=== PATIENT | male | born 1950 | race Caucasian/White ===

== ENCOUNTER 2019-08-21 22:33 | Inpatient (IN) | payer OTHER ==
[~2019-08-21] VITALS: Ht 177.8 cm; Wt 154.7 kg
[2019-08-21 22:37] VITALS: BP 159/89
[2019-08-21] MEDS ORDERED: ZESTRIL40 MG PO (22:42)
[2019-08-21] MEDS ORDERED: CARVEDILOL25 MG PO (22:42)
[2019-08-21] MEDS ORDERED: AFEDITAB CR60 MG PO (22:43)
[2019-08-21 23:01] LABS: ABSOLUTE BASOPHILS 0.1 thou/uL (0.0-0.2); ABSOLUTE EOSINOPHILS 0.3 thou/uL (0.0-0.7); ABSOLUTE LYMPHOCYTES 5.6 thou/uL (0.8-5.3); ABSOLUTE MONOCYTES 1.1 thou/uL (0.0-1.2); ABSOLUTE NEUTROPHILS 4.4 thou/uL (1.6-8.1); BASOPHILS 1.2 %; EOSINOPHILS 2.8 %; HEMATOCRIT 49.5 % (42.0-52.0); HEMOGLOBIN 16.8 gm/dL (14.0-18.0); LYMPHOCYTES 48.6 %; MCH 29.2 pg (26.0-34.0); MCHC 33.9 g/dL (28.0-37.0); MCV 86.2 fL (80.0-100.0); MONOCYTES 9.3 %; MPV 7.8 fl. (7.2-11.1); NUCLEATED RBCS 0 /100WBC; PLATELET COUNT* 319 thou/uL (150-400); POLYS 38.1 %; RBC 5.74 mil/uL (4.50-6.00); RDW-CV 14.1 % (10.5-14.5); WBC 11.5 thou/uL (4.0-11.0)
[2019-08-21 23:19] LABS: PROTIME 10.3 Seconds (9.20-11.50)
[2019-08-21 23:26] LABS: CREATININE 1.3 mg/dL (0.6-1.3); POTASSIUM 3.7 mmol/L (3.5-5.1)
[2019-08-21 23:37] LABS: ALBUMIN 3.6 g/dL (3.4-5.0); TOTAL BILIRUBIN 0.8 mg/dL (<0.1-1.0); TOTAL PROTEIN 8.1 g/dL (6.4-8.2)
[2019-08-22] VITALS (16 sets, daily range): BP systolic 126–176; BP diastolic 56–91
--- NOTE | 2019-08-22 03:57 | NUR ---
PT ADMITTED TO ROOM 201 FROM ED FOR EPISODE OF CHEST PAIN AT HOME. PT PLEASANT AND COOPERATIVE, DENIES PAIN OR DISCOMFORT. PT ORIENTED TO CALL LIGHT, BED CONTROLS AND ROOM. PT STARTED ON HEPARIN DRIP PER ORDERS. CALL LIGHT IN REACH, PT DEMONSTRATES PROPER USE.
--- NOTE | 2019-08-22 06:48 | NUR ---
CRITICAL TROPONIN 7.[address] BABS POWERS AT 0615. RECIEVED ORDERS FOR 12 LEAD EKG, TROPONIN T 10 AM AND MEDICATIONS.
[2019-08-22 10:13] LABS: CHOLESTEROL 190 mg/dL (<200); HDL CHOLESTEROL 31 mg/dL (>40); LDL CHOLESTEROL 142 mg/dL (<100); TC:HDL 6.1 Ratio (Not establshd); TRIGLYCERIDE 85 mg/dL (<150); VLDL 17 mg/dL (<40)
[2019-08-22 10:26] LABS: SERUM ASSESSMENT Clear
--- NOTE | 2019-08-22 11:43 | NUR ---
PT TAKEN TO SALES/MARKETING FOR PROCEDURE
--- NOTE | 2019-08-22 14:21 | EKG ---
[place] [address] ELECTROCARDIOGRAM REPORT Name: CHELSEA KOEHLER RADHA Room: [address] ADM IN M.R.#: [id number] Admission: 08/22/19 Attend Phys: Magdaleno lan Sa Discharge: Date of : 46 Date of Service: 08/21/192236 Report #: [id number] THIS REPORT FOR: //name// [facility] ED Test Date: 2019-08-21 Test Time: 22:37:17 Pat Name: CHELSEA KOEHLER Department: Room: [facility] Gender: M Home Health Aid: RANJANA : 1950 Requested By: Kylie Carlin Order Number: [id number] MD: Kip Llamas Measurements Intervals [place] Rate: 88 P: 25 [place]: 188 QRS: 3 QRSD: 113 T: 58 QT: 369 QTc: 447 Interpretive Statements Sinus rhythm Probable left atrial enlargement Incomplete right bundle branch block Low voltage, precordial leads Baseline wander in lead(s) V1 No previous ECG available for comparison Electronically Signed On 08-22-2019 14:20:25 CDT by Kip Llamas [email or web address] <ELECTRONICALLY SIGNED> By: Jesse Llamas MD, [facility] 08/22/19 142 36 36 Jesse Llamas MD, [facility] /EPI
--- NOTE | 2019-08-22 16:45 | NUR ---
PT POST CATH PROCEDURE VS STABLE. RADIAL SITE CLEAR OF DRAINAGE. VASC BAND DEFLATED AND PT TIOLERTING WELL. NO REPORTS OF PAIN. PT MAY D/C TOMORROW POSSIBLY. PT RESTING AT THIS TIME. NO COMPLAINTS.
[2019-08-22 16:49] LABS: URINE BILIRUBIN NEGATIVE (Negative); URINE BLOOD 2+ (Negative); URINE COLOR YELLOW; URINE GLUCOSE-RANDOM NEGATIVE (Negative); URINE KETONES NEGATIVE (Negative); URINE LEUKOCYTES-REFLEX NEGATIVE (Negative); URINE NITRITE-REFLEX NEGATIVE (Negative); URINE PROTEIN NEGATIVE (Negative); URINE SPECIFIC GRAVITY <= 1.005 (1.005-1.030); URINE UROBILINOGEN 0.2 E.U./dl (0.2-1.0)
[2019-08-22 16:52] LABS: URINE CLARITY HAZY
[2019-08-22 16:59] LABS: BACTERIA-REFLEX None Seen /HPF (None Seen); CASTS None Seen /LPF (None Seen); CRYSTALS None Seen /LPF (None Seen); SQUAMOUS 0-3 Few /LPF (0-3); URINE RBC None Seen /HPF (0-2); URINE WBC-REFLEX None Seen /HPF (0-5)
[2019-08-23] VITALS: BP 150/91
[2019-08-23 04:00] VITALS: BP 155/89
[2019-08-23 04:30] LABS: HEMATOCRIT 46.3 % (42.0-52.0); HEMOGLOBIN 15.3 gm/dL (14.0-18.0); MCH 28.7 pg (26.0-34.0); MCV 86.8 fL (80.0-100.0); MPV 8.2 fl. (7.2-11.1); RBC 5.33 mil/uL (4.50-6.00); RDW-CV 13.9 % (10.5-14.5); WBC 12.9 thou/uL (4.0-11.0)
--- NOTE | 2019-08-23 04:41 | NUR ---
ASSUMED CARE OF PT AFTER REPORT AT 1930. PT A&OX. VSS. PHYSICAL ASSESSMENT COMPLETED AND CHARTED. PT ON O2 AT 2L NC. PT TRACING SR/1ST DEG ON TELE. PT UPADLIB TO RESTROOM. PT DENIES ANY PAIN OR DISCOMFORT. POST CATH SITE TO RIGHT RADIAL-RADSTAT REMOVED. COVERED WITH GAUZE & TRANSPARENT DRESSING- CLEAN, DRY & INTACT. NO BLEEDING OR HEMATOMA NOTED. CALL LIGHT WITHIN REACH.
[2019-08-23 05:05] LABS: ALBUMIN 3.5 g/dL (3.4-5.0); CALCIUM 8.9 mg/dL (8.5-10.1); CREATININE 1.3 mg/dL (0.6-1.3); POTASSIUM 4.6 mmol/L (3.5-5.1); TOTAL PROTEIN 7.1 g/dL (6.4-8.2)
[2019-08-23 08:00] VITALS: BP 155/86
--- NOTE | 2019-08-23 08:13 | 2DMMODE ---
[place] [address] 2 D/M-MODE ECHOCARDIOGRAM Name: CHELSEA KOEHLER Room: [address] IN [facility]#: [id number] Admission: 08/22/19 Attend Phys: Magdaleno lan Sa Discharge: Date of : 46 Date of Service: 08/23/19811 Report #: [id number] THIS REPORT FOR: cc: Bebe Lyman Carol ARNP Biggs, F. Douglas MD [facility] ~ APPROVED REPORT Study performed: 08/22/2019 18:19:55 EXAM: Comprehensive 2D, Doppler, and color-flow Echocardiogram Patient Location: In-Patient Room #: [facility] Status: routine BSA: 2.62 HR: 63 bpm BP: 153/86 mmHg Rhythm: NSR Other Information Technically limited study due to body habitus, poor endocardial definition, inability to position patient, patient unable to tolerate apical views, hence the off axis imaging. Indications Chest Pain 2D Dimensions IVSd: 10.34 (7-11mm) LVOT Diam: 20.70 (18-24mm) LVDd: 48.11 mm PWd: 9.94 (7-11mm) Ascending Ao: 34.42 (22-36mm) LVDs: 21.00 (25-40mm) Aortic Root: 34.64 mm Mitral Valve E/A Ratio: 0.68 MV Decel. Time: 296.29 ms MV E Max Jack.: 0.90 m/s MV PHT: 85.92 ms MVA (PHT): 2.56 cm2 Pulmonary Valve PV Peak Jack.: 1.20 m/s PV Peak Gr.: 5.74 [place] [address] 2 D/M-MODE ECHOCARDIOGRAM Name: CHELSEA KOEHLER Room: [address] IN .R.#: [id number] Admission: 08/22/19 Attend Phys: Magdaleno lan Sa Discharge: Date of : 46 Date of Service: 08/23/19 0812 Report #: [id number] Left Ventricle The left ventricle is normal size. There is normal LV segmental wall motion. There is normal left ventricular wall thickness. Left ventricular systolic function is normal. The left ventricular ejection fraction is within the normal range. LVEF is 55-60%. Grade I - abnormal relaxation pattern. Right Ventricle The right ventricle is normal size. The right ventricular systolic function is normal. Atria The left atrium size is normal. The right atrium size is normal. Aortic Valve The aortic valve is normal in structure. No aortic regurgitation is present. There is no aortic valvular stenosis. Mitral Valve There is mitral annular calcification. There is no mitral valve regurgitation noted. No evidence of mitral valve stenosis. Tricuspid Valve The tricuspid valve is normal in structure. Unable to assess PA pressure. Trace tricuspid regurgitation. Pulmonic Valve The pulmonary valve is normal in structure. There is no pulmonic valvular regurgitation. Great Vessels The aortic root is normal in size. IVC is normal in size and collapses >50% with inspiration. Pericardium There is no pericardial effusion. <Conclusion> LVEF is 55-60%. Grade I - abnormal relaxation pattern. The left ventricle is normal size. There is normal LV segmental wall motion. There is normal left ventricular wall thickness. No aortic regurgitation is present. There is no mitral valve [place] [address] 2 D/M-MODE ECHOCARDIOGRAM Name: CHELSEA KOEHLER RADHA Room: [address] IN .R.#: [id number] Admission: 08/22/19 Attend Phys: Magdaleno lan Sa Discharge: Date of : 46 Date of Service: 08/23/19811 Report #: [id number] Unable to assess PA pressure. Trace tricuspid regurgitation. <ELECTRONICALLY SIGNED> By: Jesse Llamas MD, [facility] 08/23/19811 1 0812 Jesse Llamas MD, FACC /INF
[2019-08-23 09:20] VITALS: BP 155/89
[2019-08-23 10:04] VITALS: BP 155/86
--- NOTE | 2019-08-23 10:11 | CARD ---
[address] [address] CARDIAC CATH REPORT Name: RODOCHELSEA RADHA Room: [address] IN .R.#: [id number] Admission: 08/22/19 Attend Phys: Magdaleno lan [place] Discharge: Date of : 46 Report #: [id number] THIS REPORT FOR: //name// cc: Bebe Lyman Carol ARNP ~ APPROVED REPORT Study performed: 08/22/2019 10:46:30 Patient Details Patient Status: In-Patient Room #: The patient is a 69 year-old male Event Personnel Giovanni Resendez Pediatric Np, Rubina Barrera RN RN, Lucina Downing RN RN, Bernadette Veliz RTR ScrubStalin Jessie RTR Monitor Procedures Performed Art Access - R radial artery Left Heart Cath w/or w/o Coronaries CHRISSIE Place w/wo Plasty Single CIRC Hemostasis with Hemoband Indication Non-STEMI , Dyspnea, Chest pain Risk Factors Obesity, Family History, HypercholesterolemiaPhysical Activity, Hypertension Procedure Narrative The patient was brought urgently to the Cardiac Catheterization Laboratory and was prepped and draped in a sterile manner. The right wrist was infiltrated with 2% Lidocaine subcutaneous anesthesia. A Slender Glidesheath sheath was inserted into the right radial artery. Coronary angiography was performed using coronary diagnostic catheters. The right coronary system was accessed and visualized with a Diagnostic 6 Fr JR 4 catheter. The left coronary system was accessed and visualized with a Diagnostic 6 Fr JL 4 catheter. The left ventricle was accessed and visualized with a Diagnostic 6 Fr JR 4 catheter. Left ventricular/Aortic Valve gradient assessed via catheter pullback. Closure device was deployed with a Fr Vasc-Band XLng 29cm. The patient tolerated the procedure well and there were no complications associated with the procedure. There was no hematoma. Left ventricular pressures were taken. No left ventric[place] [address] CARDIAC CATH REPORT Name: CHELSEA KOEHLER Room: [address] IN [facility].#: [id number] Admission: 08/22/19 Attend Phys: Magdaleno [place] Discharge: Date of : 46 Report #: [id number] Intraoperative Conscious Sedation No sedation was given. Case start time was 11:39. Case end time was 12:17. Fluoro Time: 12.0 minutes Dose: DAP 033818 cGycm2 2370 mGy Contrast Type and Amount: Visipaque 150 ml Coronary Angiography The patient's coronary anatomy is right dominant. Diagnostic Cath Left Main This is a large caliber vessel, patent with no flow-limiting lesions. LAD There are moderate lesions in the mid LAD segment, 50% approximately. The distal LAD wraps around the apex. Diagonal 1 There is mild disease in the proximal segment. Circumflex There is a severe stenosis in the mid segment, at least 95%. There is a mild stenosis in the proximal segment. OM1 This is a small to moderate size caliber vessel, with a mild ostial stenosis. OM2 This is a small to moderate size caliber vessel, with a mild ostial stenosis. Right Coronary This is a dominant vessel with a mild stenosis in the proximal and distal segments. R PDA This is a patent vessel, with no flow-limiting lesions. RPLV This is a patent vessel, with no flow-limiting lesions. Left Ventriculography Left Ventriculography was not performed. An LVEDP was measured and there is no gradient across the outflow tract. Hemodynamics The aortic pressure is 154/65 mmHg with a mean of 106 mmHg. The left ventricular pressure is 152/8 mmHg with a mean of mmHg. The left ventricular end diastolic pressure is 28 mmHg. PCI Technique Lesion Anticoagulation was achieved with Angiomax Drip. Patient was preloaded with Angiomax IV 24 ml. Percutaneous coronary intervention was performed on the mid circumflex artery segment. The lesion stenosis prior to intervention was 95% with KWADWO 3 flow. A 6FR XB 3.5 100CM Guide Catheter was used to engage [place] [address] CARDIAC CATH REPORT Name: CHELSEA KOEHLER Room: [address] IN M.R.#: [id number] Admission: 08/22/19 Attend Phys: Magdaleno [place] Discharge: Date of : 46 Report #: [id number] Magnet Interventional Guidewire was used to cross the lesion. BALLOON DILATION A Balloon catheter Trek RX 2.25 X 8 was inserted and inflated up to 10.00atm for 13seconds. Additional Inflation: 10.00atm for 9seconds. Additional Inflation: 14.00atm for 15seconds. STENT DEPLOYMENT A drug-eluting stent Bandar RX Stent 2.55M22lw was inserted and inflated up to 14.00atm for 17seconds. Final angiography reveals 0 % stenosis with KWADWO 3 flow. Conclusion 1. Successful insertion of a drug-eluting stent into the mid segment of the left circumflex artery. 2. Moderate disease in the mid LAD segment. 3. Mild plaquing in the RCA. 4. Recommend dual antiplatelet therapy and aggressive risk factor management. <ELECTRONICALLY SIGNED> By: Giovanni Resendez MD 08/23/19 1009 1009 1009Giovanni Resendez MD /INF
--- NOTE | 2019-08-23 11:21 | EKG ---
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: [id number] : 1950 Requested By: Kylie Carlin Order Number: [id number] MD: Kip Llamas Measurements Intervals [place] Rate: 69 P: 48 MO: 209 QRS: 21 QRSD: 117 T: 44 QT: 408 QTc: 437 Interpretive Statements Sinus rhythm Left atrial enlargement Incomplete right bundle branch block Low voltage, precordial leads Consider inferior infarct Compared to ECG 08/21/2019 22:37:17 Myocardial infarct finding now present Electronically Signed On 08-23-2019 11:20:04 CDT by Kip Llamas [email or web address] <ELECTRONICALLY SIGNED> By: Jesse Llamas MD, [facility] 08/23/19 1120 1616 1616 Jesse Llamas MD, FAC /EPI
--- NOTE | 2019-08-23 11:22 | EKG ---
[place] [address] ELECTROCARDIOGRAM REPORT Name: CHELSEA KOEHLER Room: [address] ADM IN M.R.#: [id number] Admission: 08/22/19 Attend Phys: Magdaleno lan Sa Discharge: Date of : 46 Date of Service: 08/23/19 0341 Report #: [id number] THIS REPORT FOR: //name// 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: [email or web address] : 1950 Requested By: Giovanni Resendez Order Number: [id number] MD: Kip Llamas Measurements Intervals [place] Rate: 94 P: 64 TN: 226 QRS: 32 QRSD: 113 T: 42 QT: 370 QTc: 463 Interpretive Statements Sinus rhythm Prolonged TN interval Incomplete right bundle branch block Low voltage, precordial leads Baseline wander in lead(s) V5,V6 Compared to ECG 08/21/2019 22:37:17 First degree AV block now present Electronically Signed On 08-23-2019 11:21:19 CDT by Kip Llamas [email or web address] <ELECTRONICALLY SIGNED> By: Jesse Llamas MD, FACC 08/23/19 1121 0 0 Jesse Llamas MD, [facility] /EPI
--- NOTE | 2019-08-23 12:04 | NUR ---
PT RESTING IN BEDSIDE CHAIR. DOES COMPLAIN OF SOA ON EXERTION. VSS ON RA. RIGHT RADIAL SITE DRESSING CHANGED. SR,1ST DEGREE AVB,BBB ON MONITOR. PT PROGRESSING TOWARDS GOALS.CLWR
[2019-08-23] MEDS ORDERED: ASPIR 8181 MG PO (14:26)
[2019-08-23] MEDS ORDERED: BRILINTA90 MG PO (14:29)
[2019-08-23] MEDS ORDERED: NITROSTAT0.4 M1 SUBLING (14:31)
[2019-08-23] MEDS ORDERED: LIPITOR40 MG PO (14:34)
--- NOTE | 2019-08-24 14:06 | EKG ---
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
--- NOTE | 2019-08-24 14:06 | EKG ---
[place] [address] ELECTROCARDIOGRAM REPORT Name: CHELSEA KOEHLER Room: [address] IN M.R.#: [id number] Admission: 08/22/19 Attend Phys: Magdaleno lan Sa Discharge: 08/23/19 Date of : 46 Date of Service: 08/22/19 0638 Report #: [id number] THIS REPORT FOR: //name// [facility] Test Date: 2019-08-22 Test Time: 06:38:28 Pat Name: CHELSEA KOEHLER Department: Room: [address] Gender: M Therapeutic Consultant: MARCIA : 1950 Requested By: Giovanni Resendez Order Number: [id number] Norma MD: Brent Barrera Measurements Intervals [place] Rate: 65 P: 50 [place]: 207 QRS: 16 QRSD: 119 T: 49 QT: 417 QTc: 434 Interpretive Statements Sinus rhythm Incomplete right bundle branch block Low voltage, precordial leads Electronically Signed On 08-24-2019 14:05:01 CDT by Brent Barrera [email or web address] <ELECTRONICALLY SIGNED> By: Brent Barrera MD, [facility] 08/24/19 1405 0638 0638 Brent Barrera MD, [facility] /EPI
--- NOTE | 2019-08-25 16:03 | CON ---
[address] [address] CONSULTATION Name: DEYAPALLAVICHELSEADYLON GARCIA Room: [address] IN M.R.#: [id number] Admission: 08/22/19 Attend Phys: Magdaleno [place] Discharge: 08/23/19 Date of : 46 Report #: [id number] THIS REPORT FOR: //name// cc: Bebe Lyman Carol ARNP ~ THIS REPORT FOR: //name// CC: Bebe De La Fuente DATE OF SERVICE: 08/22/2019 CARDIOLOGY CONSULTATION HISTORY OF PRESENT ILLNESS: I was asked by Dr. De La Fuente to see this 69-year-old white male in Cardiology consultation for evaluation and treatment of an acute tso-GW-nybdisc elevation WI. This man has a history of smoking 20 years ago. He has a family history of coronary artery disease. He has high blood pressure and hypercholesterolemia, but not diabetes as far as he knows. He developed the onset of substernal chest pressure that was a 4-5 on a scale of 10 last night, a little before 10:00. Overall, the pain lasted an hour. It did radiate into the left arm and the left arm was a little weak. The pain occurred at rest. It was not particularly better with rest. It was not particularly worse with activity. There was no associated shortness of breath. There was some nausea. There was no vomiting or diaphoresis. There is no relationship to food. He did not get nitroglycerin. Both arms ached a little bit. Pain lasted an hour. Initial troponin was less than 0.06. The next one was 0.9 and the subsequent one was 7.25. His EKG demonstrated normal sinus rhythm and there was an incomplete right branch block, probable left atrial enlargement, generally low voltage in the precordial leads as well as in the limb leads to some extent. There was slight ST segment elevation in AVR. That ST segment elevation looked a little worse on the second EKG, but was gone on EKG this morning. That was in her AVR reciprocal lead. He is pain free currently. He has been pain free since before midnight. He does have chronic dyspnea on exertion, but not shortness of breath at rest, orthopnea, or PND. He has not had syncope or near syncope. He has never had congestive heart failure. He has never had an WI before. He has never had angina before. He has never had a TIA or CVA. He does not have any peripheral vascular disease or claudication. He has no previous heart problems or vascular problems. His current medical problems are as described above in the history of present illness. FAMILY HISTORY: Includes his father having coronary artery disease and bypass graft surgery. Mother had an WI as well. An uncle who had an WI at age 43. ALLERGIES: [place] [address] CONSULTATION Name: CHELSEA KOEHLER Room: [address] IN M.R.#: [id number] Admission: 08/22/19 Attend Phys: Magdaleno Paris Discharge: 08/23/19 Date of : 46 Report #: [id number] MEDICATIONS: His home medicines are carvedilol 25 mg daily, lisinopril 40 mg daily, nifedipine 60 mg daily, and aspirin apparently 81 mg daily. SOCIAL HISTORY: He is . He is retired. He does not smoke, drink, or use illegal drugs. REVIEW OF SYSTEMS: Positive for chest discomfort; shortness of breath with exercise; thyroid trouble; medical allergies, may be niacin; and arthritis. Otherwise, his review of systems is negative for some 40 different complaints in 14 different system categories including central nervous system, general, respiratory, cardiovascular, endocrine, gastrointestinal, genitourinary, hematologic, lymphatic, allergic, immunologic, psychiatric, musculoskeletal, skin, eyes, ears, nose, mouth, and throat. Please see review of systems form for details and negatives in review of systems. PHYSICAL EXAMINATION: GENERAL: He presents as a well-developed and well-nourished white male in no acute distress. VITAL SIGNS: His pulse was 67 and regular, blood pressure is 126/71, respirations 20 and regular, and temperature is 97.8. HEENT: His head was atraumatic. Eyes clear. NECK: Supple. There is no jugular venous distention or hepatojugular reflux. Thyroid is not enlarged. There is no adenopathy. SKIN: Warm and dry. Mucous membranes are moist. LUNGS: Clear to auscultation and percussion. HEART: Revealed normal first and second heart sounds. Soft S4. There is no S3. There are no murmurs, rubs, thrills, heaves, or gallops. PMI is nondisplaced. ABDOMEN: Soft, flat, and nontender. No palpable masses. No organomegaly. EXTREMITIES: Reveal no cyanosis, clubbing, or edema. NEUROLOGIC: The patient mentated normally, talked normally, and moved all extremities normally. IMPRESSION: 1. Acute mmc-NE-nktwcdy elevation myocardial infarction. 2. Coronary artery disease. 3. Hypercholesterolemia. 4. Essential hypertension. RECOMMENDATION: He should have cardiac catheterization and coronary angiography. He is going to have that today. Dr. Resendez will perform the procedure. [place] [address] CONSULTATION Name: CHELSEA KOEHLER Room: [address] IN M.R.#: [id number] Admission: 08/22/19 Attend Phys: Magdaleno gonzalez [place] Discharge: 08/23/19 Date of : 46 Report #: [id number] Thank you very much for asking me to see the patient. If you have any questions, please feel free to contact me. <ELECTRONICALLY SIGNED> By: Jesse Llamas MD, FACC 08/25/19 1603 1044 1109F. Kip Llamas MD, FACC /nt
== END 2019-08-23 16:02 | disposition home or self-care (01) | DRG 246 ==
LOC: M.ERS 22:33 → M.TBA-ER 08-22 01:21 → M.2W 08-22 02:43
PROVIDERS: Emergency Medicine; Internal Medicine; ADMIT Family Medicine
PROC: 027034Z Dilation of Coronary Artery, One Artery with Drug-eluting Intraluminal Device, Percutaneous Approach (ICD-10-PCS; principal; 2019-08-22)
PROC: B211YZZ Fluoroscopy of Multiple Coronary Arteries using Other Contrast (ICD-10-PCS; principal; 2019-08-22)
PROC: 4A023N7 Measurement of Cardiac Sampling and Pressure, Left Heart, Percutaneous Approach (ICD-10-PCS; principal; 2019-08-22)
DX: I21.4 Non-ST elevation (NSTEMI) myocardial infarction (principal); I50.31 Acute diastolic (congestive) heart failure; E44.1 Mild protein-calorie malnutrition; Z68.42 Body mass index [BMI] 45.0-49.9, adult; I11.0 Hypertensive heart disease with heart failure; E78.5 Hyperlipidemia, unspecified; E78.00 Pure hypercholesterolemia, unspecified; E66.01 Morbid (severe) obesity due to excess calories; K21.9 Gastro-esophageal reflux disease without esophagitis; I25.10 Atherosclerotic heart disease of native coronary artery without angina pectoris; Z79.899 Other long term (current) drug therapy; Z88.8 Allergy status to other drugs, medicaments and biological substances; Z82.49 Family history of ischemic heart disease and other diseases of the circulatory system; Z79.82 Long term (current) use of aspirin

== ENCOUNTER 2019-09-08 23:32 | Emergency (ER) | payer OTHER ==
[~2019-09-08] VITALS: Ht 177.8 cm; Wt 147.4 kg
[~2019-09-08 23:32] MED LIST: AFEDITAB CR60 MG PO; ASPIR 8181 MG PO; BRILINTA90 MG PO; CARVEDILOL25 MG PO; LIPITOR40 MG PO; NITROSTAT0.4 M1 SUBLING; ZESTRIL40 MG PO
[2019-09-08] MEDS ORDERED: KLOR-CON 1010 MEQ (23:47)
[2019-09-08] MEDS ORDERED: FUROSEMIDE 20 M20 MG (23:47)
[2019-09-09 00:02] LABS: ABSOLUTE BASOPHILS 0.1 thou/uL (0.0-0.2); ABSOLUTE EOSINOPHILS 0.1 thou/uL (0.0-0.7); ABSOLUTE LYMPHOCYTES 3.6 thou/uL (0.8-5.3); ABSOLUTE NEUTROPHILS 4.8 thou/uL (1.6-8.1); BASOPHILS 0.7 %; EOSINOPHILS 1.5 %; HEMATOCRIT 45.7 % (42.0-52.0); HEMOGLOBIN 15.4 gm/dL (14.0-18.0); LYMPHOCYTES 37.4 %; MCH 28.9 pg (26.0-34.0); MCHC 33.8 g/dL (28.0-37.0); MCV 85.6 fL (80.0-100.0); MONOCYTES 10.7 %; MPV 8.4 fl. (7.2-11.1); NUCLEATED RBCS 0 /100WBC; PLATELET COUNT* 312 thou/uL (150-400); POLYS 49.7 %; RBC 5.33 mil/uL (4.50-6.00); RDW-CV 13.9 % (10.5-14.5); WBC 9.6 thou/uL (4.0-11.0)
[2019-09-09 00:32] LABS: CALCIUM 9.4 mg/dL (8.5-10.1); CREATININE 1.5 mg/dL (0.6-1.3); POTASSIUM 3.7 mmol/L (3.5-5.1)
[2019-09-09 00:42] LABS: ALBUMIN 3.5 g/dL (3.4-5.0); TOTAL PROTEIN 7.6 g/dL (6.4-8.2)
[2019-09-09 02:34] VITALS: BP 132/66
--- NOTE | 2019-09-09 10:49 | EKG ---
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 09/09/19 1047 2353 2353 Brent Barrera MD, [facility] /EPI
== END 2019-09-09 02:34 | disposition home or self-care (01) ==
LOC: M.ERS 23:32
PROVIDERS: Emergency Medicine
DX: M79.661 Pain in right lower leg (principal); R60.0 Localized edema; Z88.8 Allergy status to other drugs, medicaments and biological substances

== ENCOUNTER 2019-09-21 11:48 | Emergency (ER) | payer OTHER ==
[~2019-09-21] VITALS: Ht 177.8 cm; Wt 147.4 kg
[~2019-09-21 11:48] MED LIST changes: +FUROSEMIDE 20 M20 MG; +KLOR-CON 1010 MEQ
[2019-09-21 12:17] LABS: ABSOLUTE BASOPHILS 0.1 thou/uL (0.0-0.2); ABSOLUTE EOSINOPHILS 0.1 thou/uL (0.0-0.7); ABSOLUTE LYMPHOCYTES 3.3 thou/uL (0.8-5.3); ABSOLUTE MONOCYTES 0.9 thou/uL (0.0-1.2); ABSOLUTE NEUTROPHILS 3.9 thou/uL (1.6-8.1); BASOPHILS 0.6 %; EOSINOPHILS 1.8 %; HEMATOCRIT 43.5 % (42.0-52.0); HEMOGLOBIN 14.7 gm/dL (14.0-18.0); LYMPHOCYTES 39.7 %; MCH 28.7 pg (26.0-34.0); MCHC 33.8 g/dL (28.0-37.0); MCV 85.1 fL (80.0-100.0); MONOCYTES 10.6 %; MPV 8.6 fl. (7.2-11.1); NUCLEATED RBCS 0 /100WBC; PLATELET COUNT* 284 thou/uL (150-400); POLYS 47.3 %; RBC 5.11 mil/uL (4.50-6.00); RDW-CV 13.7 % (10.5-14.5); WBC 8.3 thou/uL (4.0-11.0)
[2019-09-21 12:27] LABS: CALCIUM 8.7 mg/dL (8.5-10.1); CREATININE 1.6 mg/dL (0.6-1.3)
[2019-09-21 12:29] LABS: APTT 31.5 Seconds (25.0-31.3); INR 1.1; PROTIME 11.4 Seconds (9.20-11.50)
[2019-09-21 12:40] LABS: ALBUMIN 3.4 g/dL (3.4-5.0); CK-MB MASS 1.5 ng/mL (<0.5-3.6); TOTAL BILIRUBIN 1.2 mg/dL (<0.1-1.0); TOTAL PROTEIN 7.1 g/dL (6.4-8.2)
[2019-09-21] MEDS ORDERED: PLAVIX 75 MG TA75 MG PO (12:48)
[2019-09-21 13:04] VITALS: BP 125/70
--- NOTE | 2019-09-21 15:54 | EKG ---
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
--- NOTE | 2019-09-21 17:26 | CON ---
[address] [address] CONSULTATION Name: CHELSEA KOEHLER [id number] Admission: 09/21/19 Attend Phys: Discharge: 09/21/19 Date of : 46 Report #: [id number] THIS REPORT FOR: //name// cc: Bebe Lyman Carol ARNP ~ THIS REPORT FOR: //name// CC: Bebe Mckeon DATE OF SERVICE: 09/21/2019 CARDIOLOGY CONSULTATION HISTORY OF PRESENT ILLNESS: The patient is a 69-year-old white male who I was asked to see in the Emergency Room today after he complained of chest pain. The patient has no previous history of heart disease. He presented to [facility] in August with a non-STEMI. Dr. Resendez placed a stent in his circumflex artery. He was placed on Brilinta that time. Echocardiogram showed normal left ventricular function. He actually just saw Dr. Llamas in the Cardiology Clinic last week and was doing well. He was at home this morning, he felt some discomfort in his chest. He took a nitroglycerin that seemed to help. He was brought to the Emergency Room. I was asked to see him for further evaluation and treatment. He does note exertional dyspnea. He does have edema and recently was taken off nifedipine because of the swelling. He denies any palpitations, syncope, fever, cough, blood in the stool. PAST MEDICAL HISTORY: He has had no surgical procedures. He did have a skin cancer removed in the past. He does have a history of hypertension and hyperlipidemia. No history of diabetes. MEDICATIONS: Include aspirin, Lipitor, carvedilol, Lasix, lisinopril, potassium, Brilinta. ALLERGIES: HE HAS INTOLERANCE TO NIACIN. FAMILY HISTORY: Heart disease runs in the family. SOCIAL HISTORY: He is . He and his live in [place]. 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 Quit smoking years ago. No alcohol abuse. REVIEW OF SYSTEMS: He is overweight, standing 5 feet 10 inches and weighing 324 pounds. He does snore at night. No history of stroke, GI bleeding, liver disease. He has chronic kidney disease. No cancer. No psychiatric illness[place] [address] CONSULTATION Name: CHELSEA KOEHLER RADHA [facility] [id number] Admission: 09/21/19 Attend Phys: Discharge: 09/21/19 Date of : 46 Report #: [id number] PHYSICAL EXAMINATION: GENERAL: Revealed an elderly obese male, lying in bed, appeared in no distress. VITAL SIGNS: Blood pressure 130/80, pulse 60. He was afebrile. HEENT: He was anicteric. Conjunctivae were pink. Mucous membranes are moist. NECK: Veins difficult to assess due to obesity. CHEST: Clear to auscultation. CARDIAC: Regular rate and rhythm. ABDOMEN: Obese. EXTREMITIES: Had trace edema. SKIN: Warm and dry. NEUROLOGIC: Nonfocal. RADIOLOGICAL DATA: His ECG on admission showed a sinus rhythm. There was no significant ST or T-wave change noted. His chest x-ray is still pending. LABORATORY DATA: Sodium 138, creatinine 1.6. Troponins all 0.06. BNP 455. White blood cell count 8.3, hemoglobin 14.7. IMPRESSION AND RECOMMENDATIONS: 1. Chest pain. No elevation of troponin or ECG changes. I would continue medical therapy. 2. Shortness of breath. I would recommend switching from Brilinta to Plavix. I would continue aspirin 81 mg a day. 3. Hyperlipidemia. The patient is on a statin drug. 4. Hypertension. The patient is on a beta-derrell, PEPE inhibitor. Recently taken off of nifedipine because of swelling. 5. Venous stasis. The patient is on Lasix. I did recommend if any increasing edema, he can take an extra dose of Lasix in the afternoon. 6. Snoring at night. Consider sleep apnea. 7. Morbid obesity. Recommend diet and exercise. I have made an appointment to see Dr. Llamas's, nurse practitioner, next week in the office after switching from Brilinta to Plavix. I think it is reasonable to discharge the patient from the Emergency Room at this time. <ELECTRONICALLY SIGNED> By: Brent Barrera MD, FACC 09/21/19 1726 1253 [id number] Barrera MD, FACC /nt
== END 2019-09-21 13:05 | disposition home or self-care (01) ==
LOC: M.ERS 11:48
PROVIDERS: Family Medicine
DX: R07.89 Other chest pain (principal); I10 Essential (primary) hypertension; I25.10 Atherosclerotic heart disease of native coronary artery without angina pectoris; Z95.5 Presence of coronary angioplasty implant and graft; Z88.8 Allergy status to other drugs, medicaments and biological substances

== ENCOUNTER 2019-09-26 04:40 | Emergency (ER) | payer OTHER ==
[~2019-09-26] VITALS: Ht 177.8 cm; Wt 108.1 kg
[~2019-09-26 04:40] MED LIST changes: -FUROSEMIDE 20 M20 MG; +FUROSEMIDE 20 M20 MG PO; +PLAVIX 75 MG TA75 MG PO
[2019-09-26 05:01] LABS: ABSOLUTE BASOPHILS 0.1 thou/uL (0.0-0.2); ABSOLUTE EOSINOPHILS 0.2 thou/uL (0.0-0.7); ABSOLUTE LYMPHOCYTES 4.3 thou/uL (0.8-5.3); ABSOLUTE MONOCYTES 1.1 thou/uL (0.0-1.2); ABSOLUTE NEUTROPHILS 4.6 thou/uL (1.6-8.1); BASOPHILS 0.7 %; EOSINOPHILS 1.5 %; HEMATOCRIT 43.3 % (42.0-52.0); HEMOGLOBIN 14.4 gm/dL (14.0-18.0); MCH 28.7 pg (26.0-34.0); MCHC 33.4 g/dL (28.0-37.0); MPV 8.2 fl. (7.2-11.1); NUCLEATED RBCS 0 /100WBC; PLATELET COUNT* 302 thou/uL (150-400); POLYS 44.8 %; RBC 5.03 mil/uL (4.50-6.00); RDW-CV 13.4 % (10.5-14.5); WBC 10.3 thou/uL (4.0-11.0)
[2019-09-26 05:11] LABS: PROTIME 10.6 Seconds (9.20-11.50)
[2019-09-26 05:19] LABS: CALCIUM 8.3 mg/dL (8.5-10.1); CREATININE 1.6 mg/dL (0.6-1.3)
[2019-09-26 05:29] LABS: ALBUMIN 3.4 g/dL (3.4-5.0); MAGNESIUM 1.8 mg/dL (1.8-2.4); TOTAL BILIRUBIN 0.7 mg/dL (<0.1-1.0); TOTAL PROTEIN 7.3 g/dL (6.4-8.2)
[2019-09-26 07:43] VITALS: BP 132/83
--- NOTE | 2019-09-27 16:09 | EKG ---
[place] [address] ELECTROCARDIOGRAM REPORT Name: CHELSEA KOEHLER RADHA Room: [facility] [id number] Admission: 09/26/19 Attend Phys: Discharge: 09/26/19 Date of : 46 Date of Service: 09/26/19 0443 Report #: [id number] THIS REPORT FOR: //name// [facility] ED Test Date: 2019-09-26 Test Time: 04:43:38 Pat Name: CHELSEA KOEHLER Department: Room: Gender: Aboriginal Education Worker Coordinator: ALLYSON : 1950 Requested By: Kylie Carlin Order Number: [id number] MD: Ag Donovan Measurements Intervals [place] Rate: 70 P: 47 [place]: 194 QRS: 15 QRSD: 118 T: 60 QT: 392 QTc: 423 Interpretive Statements Sinus rhythm Incomplete right bundle branch block Low voltage, precordial leads Compared to ECG 09/21/2019 11:52:31 Incomplete right bundle-branch block now present Low QRS voltage now present Electronically Signed On 09-27-2019 16:07:58 CDT by Ag Donovan [email or web address] <ELECTRONICALLY SIGNED> By: Ag Donovan MD, FACC 09/27/19 1607 0443 0443 Ag Donovan MD, [facility] /EPI
== END 2019-09-26 07:46 | disposition home or self-care (01) ==
LOC: M.ERS 04:40
PROVIDERS: Emergency Medicine
DX: R07.89 Other chest pain (principal); R60.0 Localized edema; I25.10 Atherosclerotic heart disease of native coronary artery without angina pectoris; Z88.3 Allergy status to other anti-infective agents; Z95.5 Presence of coronary angioplasty implant and graft

== ENCOUNTER 2019-09-28 16:50 | Emergency (ER) | payer OTHER ==
[~2019-09-28] VITALS: Ht 177.8 cm; Wt 146.5 kg
[~2019-09-28 16:50] MED LIST changes: -KLOR-CON 1010 MEQ; +KLOR-CON 1010 MEQ PO
[2019-09-28 16:53] VITALS: BP 142/70
[2019-09-28] MEDS ORDERED: BIDIL TABLET1 EACH PO (17:12)
[2019-09-28 17:15] LABS: ABSOLUTE BASOPHILS 0.1 thou/uL (0.0-0.2); ABSOLUTE EOSINOPHILS 0.1 thou/uL (0.0-0.7); ABSOLUTE LYMPHOCYTES 4.3 thou/uL (0.8-5.3); ABSOLUTE MONOCYTES 0.9 thou/uL (0.0-1.2); ABSOLUTE NEUTROPHILS 3.9 thou/uL (1.6-8.1); BASOPHILS 0.7 %; EOSINOPHILS 1.6 %; HEMATOCRIT 41.3 % (42.0-52.0); HEMOGLOBIN 13.9 gm/dL (14.0-18.0); LYMPHOCYTES 46.2 %; MCH 28.9 pg (26.0-34.0); MCHC 33.5 g/dL (28.0-37.0); MCV 86.1 fL (80.0-100.0); MONOCYTES 9.5 %; MPV 8.3 fl. (7.2-11.1); NUCLEATED RBCS 0 /100WBC; PLATELET COUNT* 292 thou/uL (150-400); RDW-CV 13.8 % (10.5-14.5); WBC 9.2 thou/uL (4.0-11.0)
[2019-09-28 17:24] LABS: CREATININE 1.6 mg/dL (0.6-1.3); POTASSIUM 3.9 mmol/L (3.5-5.1)
[2019-09-28 17:27] LABS: APTT 29.4 Seconds (25.0-31.3); INR 1.1
[2019-09-28 17:35] LABS: ALBUMIN 3.3 g/dL (3.4-5.0); TOTAL BILIRUBIN 0.7 mg/dL (<0.1-1.0)
[2019-09-28 18:23] VITALS: BP 142/70
[2019-09-28] MEDS ORDERED: NYSTATIN1 EA10 MISCELL (23:20)
[2019-09-29] MEDS ORDERED: NYSTATIN15 G2 TOP (04:27)
--- NOTE | 2019-09-29 11:49 | EKG ---
[place] [address] ELECTROCARDIOGRAM REPORT Name: RODOCHELSEA RADHA Room: [facility]#: [id number] Admission: 09/28/19 Attend Phys: Discharge: 09/28/19 Date of : 46 Date of Service: 09/28/19 1653 Report #: [id number] THIS REPORT FOR: //name// [facility] ED Test Date: 2019-09-28 Test Time: 16:53:59 Pat Name: CHELSEA KOEHLER Department: Room: [facility] Gender: M Carbon Cutter: MS : 1950 Requested By: Sophia Forbes Order Number: [id number] MD: Shaimr Brady Measurements Intervals [place] Rate: 71 P: 38 ID: 206 QRS: 16 QRSD: 113 T: 42 QT: 381 QTc: 414 Interpretive Statements Sinus rhythm Incomplete right bundle branch block Low voltage, precordial leads Baseline wander in lead(s) III,aVF Compared to ECG 09/26/2019 04:43:38 No significant changes Electronically Signed On 09-29-2019 11:47:44 CDT by Shamir Brady [email or web address] <ELECTRONICALLY SIGNED> By: Shamir Brady MD, [facility] 09/29/19 1147 1653 1653 Shamir Brady MD, [facility] /EPI
== END 2019-09-28 18:24 | disposition left against medical advice (07) ==
LOC: M.ERS 16:50 → M.TBA-ER 17:48 → M.ERS 17:48
PROVIDERS: Personal Emergency Response Attendant
DX: I20.9 Angina pectoris, unspecified (principal); Z88.3 Allergy status to other anti-infective agents; Z91.041 Radiographic dye allergy status; Z95.5 Presence of coronary angioplasty implant and graft

== ENCOUNTER 2019-09-28 21:59 | Inpatient (IN) | payer OTHER ==
[~2019-09-28] VITALS: Ht 177.8 cm; Wt 146.5 kg
[~2019-09-28 21:59] MED LIST changes: +BIDIL TABLET1 EACH PO
[2019-09-28 22:02] VITALS: BP 160/87
[2019-09-28] MEDS ORDERED: NYSTATIN1 EA10 MISCELL (23:20)
[2019-09-29] VITALS: BP 142/86
[2019-09-29 00:10] VITALS: BP 142/74
[2019-09-29 01:30] LABS: ABSOLUTE BASOPHILS 0.1 thou/uL (0.0-0.2); ABSOLUTE EOSINOPHILS 0.2 thou/uL (0.0-0.7); ABSOLUTE LYMPHOCYTES 4.1 thou/uL (0.8-5.3); ABSOLUTE MONOCYTES 0.9 thou/uL (0.0-1.2); ABSOLUTE NEUTROPHILS 4.5 thou/uL (1.6-8.1); BASOPHILS 0.8 %; EOSINOPHILS 1.6 %; HEMATOCRIT 40.8 % (42.0-52.0); HEMOGLOBIN 13.9 gm/dL (14.0-18.0); LYMPHOCYTES 42.1 %; MCH 29.2 pg (26.0-34.0); MCV 85.8 fL (80.0-100.0); MONOCYTES 9.7 %; MPV 8.2 fl. (7.2-11.1); NUCLEATED RBCS 0 /100WBC; PLATELET COUNT* 263 thou/uL (150-400); POLYS 45.8 %; RBC 4.76 mil/uL (4.50-6.00); WBC 9.7 thou/uL (4.0-11.0)
[2019-09-29 01:36] LABS: CALCIUM 8.7 mg/dL (8.5-10.1); CREATININE 1.5 mg/dL (0.6-1.3); POTASSIUM 3.8 mmol/L (3.5-5.1)
[2019-09-29 01:37] LABS: APTT 29.2 Seconds (25.0-31.3); INR 1.1; PROTIME 10.9 Seconds (9.20-11.50)
[2019-09-29 01:49] LABS: ALBUMIN 3.3 g/dL (3.4-5.0); CK-MB MASS 1.4 ng/mL (<0.5-3.6); TOTAL BILIRUBIN 0.8 mg/dL (<0.1-1.0); TOTAL PROTEIN 6.9 g/dL (6.4-8.2)
[2019-09-29 04:00] VITALS: BP 139/79
[2019-09-29] MEDS ORDERED: NYSTATIN15 G2 TOP (04:27)
--- NOTE | 2019-09-29 06:05 | NUR ---
PATIENT ARRIVED ON FLOOR FROM ER ABOUT MIDNIGHT. PATIENT ADMISSION HISTORY AND ASSESSMENT WAS COMPLETED CHARTED. PATIENT IS SR ON MONITOR. PATIENT IS NPO PENDING CARDIOLOGY CONSULT. WILL CONTINUE TO MONITOR.
[2019-09-29 08:00] VITALS: BP 153/87
--- NOTE | 2019-09-29 11:51 | EKG ---
[place] [address] ELECTROCARDIOGRAM REPORT Name: CHELSEA KOEHLER Room: [address] ADM IN M.R.#: [id number] Admission: 09/28/19 Attend Phys: Maikel Love Discharge: Date of : 46 Date of Service: 09/28/192204 Report #: [id number] THIS REPORT FOR: //name// [facility] ED Test Date: 2019-09-28 Test Time: 22:05:34 Pat Name: CHELSEA KOEHLER Department: Room: [facility] Gender: M Silver Chaser: GLENDY : 1950 Requested By: Aleksandar Mckeon Order Number: [id number] MD: Shamir Brady Measurements Intervals [place] Rate: 72 P: 15 [place]: 209 QRS: 11 QRSD: 119 T: 33 QT: 398 QTc: 436 Interpretive Statements Sinus rhythm Incomplete right bundle branch block Low voltage, precordial leads Compared to ECG 09/26/2019 04:43:38 No significant changes Electronically Signed On 09-29-2019 11:50:06 CDT by Shamir Brady [email or web address] <ELECTRONICALLY SIGNED> By: Shamir Brady MD, [facility] 09/29/19 1150 2205 2205 Shamir Brady MD, [facility] /EPI
--- NOTE | 2019-09-29 16:00 | NUR ---
CM spoke with on phone. Pt resides at home with and son. Pt is fairly independent, has to assist with dressing sometimes, d/t Pt's shoulder pain. Per , Pt often refuses showers, but if he does take one, he is independent. No DME. No hx of HH or SNF. Goal is home at nd.
--- NOTE | 2019-09-29 16:33 | EKG ---
[place] [address] ELECTROCARDIOGRAM REPORT Name: CHELSEA KOEHLER Room: [address] ADM IN M.R.#: [id number] Admission: 09/28/19 Attend Phys: Maikel Love Discharge: Date of : 46 Date of Service: 09/29/19 1518 Report #: [id number] THIS REPORT FOR: //name// [facility] Test Date: 2019-09-29 Test Time: 15:18:26 Pat Name: CHELSEA KOEHLER Department: Room: [address] Gender: M Screen Roller: : 1950 Requested By: Ag Donovan Order Number: [id number] Norma MD: Shamir Brady Measurements Intervals [place] Rate: 79 P: 54 [place]: 207 QRS: 15 QRSD: 120 T: 32 QT: 381 QTc: 437 Interpretive Statements Sinus rhythm IVCD, consider incomp RBBB Compared to ECG 09/28/2019 22:05:34 Incomplete right bundle-branch block persists Electronically Signed On 09-29-2019 16:31:42 CDT by Shamir Brady [email or web address] <ELECTRONICALLY SIGNED> By: Shamir Brady MD, [facility] 09/29/19 1631 1518 1518 Shamir Brady MD, [facility] /EPI
[2019-09-29 16:50] VITALS: BP 160/71
--- NOTE | 2019-09-29 18:55 | NUR ---
MARCELLUS RESTING IN BED. RIGHT RADIAL CATH ACCESS SITE CLEAN AND DRY WITH NO S/S OF HEMATOMA. 8 ML OF AIR REMOVED FROM WRIST BAND. 4 ML REMAINING. VSS. AOX4. UP STANDBY ASSIST.
[2019-09-29 20:00] VITALS: BP 135/79
[2019-09-30] VITALS (11 sets, daily range): BP systolic 102–155; BP diastolic 56–85
--- NOTE | 2019-09-30 12:39 | NUR ---
ASSUMED PT CARE AT 0730, PT SITTING UP IN CHAIR, SATTING 98% ON RA, TRACING SR ON THE SUPERVISOR TANK CLEANING AND HAS NO C/O PAIN OR SHORTNESS OF BREATH. PT HAS RADIAL CATH SITE ON RT WRIST, SITE IS CLEAN, DRY AND INTACT W/ NO HEMATOMA. UPON ASSESSMENT, SITE OPEN TO AIR, BANDAID PLACED. PT REFUSED LABS TODAY, ORDER RECEIVED TO DRAW LABS THROUGH PERIPHERAL IV WHICH WAS ATTEMPTED W/ NO SUCCESS. PT AGREED TO ONE STICK FROM LAB, WHICH WAS ATTEMPTED W/ NO SUCCESS. PT GOAL IS TO WORK ON DC HOME TODAY. AM ASSESSMENT CHARTED, MEDS PER MAR, HOURLY ROUNDING OBSERVED, WILL CONTINUE POC.
--- NOTE | 2019-09-30 15:01 | NUR ---
Per Dr, anticipate dc in a few days. Following.
--- NOTE | 2019-09-30 17:16 | NUR ---
NO ACUTE CHANGES THROUGHOUT SHIFT. PT CONTINUES TO TRACE SR ON THE DIRECTOR CONTENT MARKETING. AT APPROX 1700, PT STATED HE'S HAVING CHEST PAIN. VITALS OBTAINED, BP 151/83, PULSE 79. THIS RN WENT TO GET NITRO AND WHEN RETURNED TO ROOM, PT STATES PAIN HAS SUBSIDED AND DENIES ANY NEED FOR NITRO AT THIS TIME. TUBIGRIPS PLACED TO BIL LE'S. PT DIURESING WELL THROUGHOUT SHIFT. MEDS PER AUG, HOURLY ROUNDING OBSERVED, WILL CONTINUE POC.
--- NOTE | 2019-09-30 17:31 | EKG ---
[place] [address] ELECTROCARDIOGRAM REPORT Name: CHELSEA KOEHLER Room: [address] ADM IN M.R.#: [id number] Admission: 09/28/19 Attend Phys: Maikel Love Discharge: Date of : 46 Date of Service: 09/30/19 0911 Report #: [id number] THIS REPORT FOR: //name// [facility] Test Date: 2019-09-30 Test Time: 09:11:02 Pat Name: CHELSEA KOEHLER Department: Room: [address] Gender: M [employer] Former: : 1950 Requested By: Ag Donovan Order Number: [id number] Norma MD: Ag Donovan Measurements Intervals [place] Rate: 81 P: 41 [place]: 195 QRS: 21 QRSD: 122 T: 27 QT: 389 QTc: 452 Interpretive Statements Sinus rhythm Incomplete right bundle branch block Compared to ECG 09/29/2019 15:18:26 No significant changes Electronically Signed On 09-30-2019 17:30:04 CDT by Ag Donovan [email or web address] <ELECTRONICALLY SIGNED> By: Ag Donovan MD, [facility] 09/30/19 1730 0911 Ag Donovan MD, [facility] /EPI
[2019-10-01] VITALS: BP 139/72
--- NOTE | 2019-10-01 03:05 | NUR ---
PT ALERT ORIENTED. PT HAD ONE EPISOID OF CP 03/12. PT WAS SAYING HURRY HURRY WHILE RN TOOK NTG OUT OF BOTTLE. THEN PT SAID NEVER MIND ITS SUBSIDING 08/10. PT TOOK NTG ANYWAY AND REPORTED 0/. PT UP AD FRANTZ IN ROOM. R RADIAL WITH BANDAID AND SM AMT OF OLD BLOOD. BRUSING AROUND WRIST WITHOUT HEMATOMA. TELEMETRY SHOWS SR. ON RA. WCTM
[2019-10-01 04:00] VITALS: BP 134/86
[2019-10-01 08:00] VITALS: BP 147/71
--- NOTE | 2019-10-01 10:03 | CON ---
[address] [address] CONSULTATION Name: CHELSEA KOEHLER RADHA Room: [address] ADM IN M.R.#: [id number] Admission: 09/28/19 Attend Phys: Agata Martínez Discharge: Date of : 46 Report #: [id number] THIS REPORT FOR: //name// cc: Bebe Lyman Carol ARNP ~ THIS REPORT FOR: //name// CC: Bebe Love DO DATE OF SERVICE: 09/29/2019 CARDIOLOGY CONSULTATION HISTORY OF PRESENT ILLNESS: Thank you for allowing us to see the patient in cardiovascular assessment. As you know, he is a 69-year-old male who presented with a non-ST segment elevation myocardial infarction on 08/22/2019, he underwent stenting of a high-grade mid circumflex lesion. There was also significant mid LAD lesion noted at that time, which was not approached in the acute setting. The patient had done well since discharge until approximately 10 days ago when he noted recrudescence of chest pain similar to his prior angina. Episodes have occurred 2-3 times per day. There has been some improvement after adding a long-acting mononitrate in the form of Imdur 30 mg daily, but because of recurrent and bothersome chest discomfort, the patient was admitted on 09/28/2019. At present, he is comfortable. He has not had chest pain on the morning of admission. Medical therapy has included aspirin 81 mg daily, atorvastatin 40 mg daily, Coreg 12.5 mg b.i.d., Plavix 75 mg daily, furosemide 40 mg daily, lisinopril 30 mg daily, nifedipine 60 mg daily, p.r.n. sublingual nitroglycerin, which he utilizes 2 or 3 on most days, potassium chloride 10 mEq daily. PAST MEDICAL HISTORY: Remarkable for hypertension, hyperlipidemia and weight excess and peripheral venous insufficiency. SOCIAL HISTORY: The patient is a former smoker. FAMILY HISTORY: Unremarkable for premature coronary artery disease. REVIEW OF SYSTEMS: Remarkable for the following: GENERAL: He notes chronic weight excess, [place] [address] CONSULTATION Name: CHELSEA KOEHLER RADHA Room: [address] IN [facility]#: [id number] Admission: 09/28/19 Attend Phys: Agata Martínez Discharge: Date of : 46 Report #: [id number] been present and there is peripheral venous insufficiency. EXTREMITIES: He notes moderate to mildly severe bilateral lower extremity edema. Remainder is unremarkable. PHYSICAL EXAMINATION: GENERAL: Demonstrates an overweight elderly male. VITAL SIGNS: Blood pressure is 110/70, pulse rate 72, respirations are 18 per minute and unlabored. NECK: Jugular venous pressure is normal. CHEST: Clear. CARDIAC: Reveals normal first and second heart sounds without murmurs or gallops. ABDOMEN: Moderately obese. EXTREMITIES: Reveal moderately to mildly severe bilateral lower extremity edema with intact femoral, pedal and radial pulses. IMPRESSION: 1. Unstable angina. 2. Status post recent myocardial infarction interrupted by stenting of the circumflex. 3. Hypercholesterolemia. 4. Peripheral venous insufficiency. 5. Exogenous obesity. 6. Hypertension. RECOMMENDATIONS: Given the clinical pattern of unstable angina and known coronary artery disease with recent stenting of the circumflex, I would recommend recatheterization to be undertaken on 09/29/2019 to document current coronary anatomy and prospects for subsequent therapeutic modification. Procedure and risks have been discussed with the patient and previously with his son. Thank you for allowing us to see this patient in cardiovascular assessment. <ELECTRONICALLY SIGNED> By: Shamir Brady MD, FACC 10/01/19 1003 1112 1139Shamir Brady MD, FACC /nt
--- NOTE | 2019-10-01 11:25 | CARD ---
[facility] [address] [place] [address] CARDIAC CATH REPORT Name: CHELSEA KOEHLER Room: [address] IN .R.#: [id number] Admission: 09/28/19 Attend Phys: Agata Martínez Discharge: Date of : 46 Report #: [id number] THIS REPORT FOR: //name// cc: Bebe Lyman Carol ARNP ~ APPROVED REPORT Study performed: 09/29/2019 11:09:59 Patient Details Patient Status: In-Patient Room #: The patient is a 69 year-old male Event Personnel gA Donovan Single Needle Tufting Machine Operator, Rubina Barrera RN Streetsweeper OperatorStalin peres Jessie RTR Scrub, Holkins, John Toolsmith Procedures Performed Art Access - R radial artery Left Heart Cath w/or w/o Coronaries [facility] w/wo Plasty Single LAD Hemostasis with Hemoband Procedure Narrative The patient was brought electively to the Cardiac Catheterization Laboratory and was prepped and draped in a sterile manner. The right wrist was infiltrated with 2% Lidocaine subcutaneous anesthesia. A Slender Glidesheath sheath was inserted into the right radial artery. Coronary angiography was performed using coronary diagnostic catheters. The right coronary system was accessed and visualized with a Diagnostic 6 Fr JR 4 catheter. The left coronary system was accessed and visualized with a Diagnostic 6 Fr JL 4 catheter. The left ventricle was accessed and visualized with a Diagnostic 6 Fr Pigtail catheter. Left ventricular/Aortic Valve gradient assessed via catheter pullback. Closure device was deployed with a Fr Vasc-Band XLng 29cm. The patient tolerated the procedure well and there were no complications associated with the procedure. There was no hematoma. Intraoperative Conscious Sedation No Sedation given. Case start time was 13: 39 and case end was 14:30. Fluoro Time: 17.9 minutes Dose: DAP 169310 cGycm2 3261 mGy Contrast Type and Amount: Visipaque [address] [place] [address] CARDIAC CATH REPORT Name: CHELSEA KOEHLER Room: [address] IN [facility]#: [id number] Admission: 09/28/19 Attend Phys: Agata Martínez Discharge: Date of : 46 Report #: [id number] Diagnostic Cath Left Main The left main coronary artery was normal and bifurcates into a left anterior descending and circumflex coronary artery. LAD Left anterior descending coronary artery had an 80% stenosis after the takeoff of a first diagonal and a 70% stenosis after the takeoff of a second diagonal branch. The distal vessel beyond was free of significant disease. Diagonal 1 The first diagonal branch was mildly plaqued proximally. Diagonal 2 The second diagonal branch is free of significant disease. Circumflex The circumflex complex coronary artery was 30% narrowed proximally. There was a widely patent stents in the midportion. OM1 The first obtuse marginal branch is a large branching vessel that is diffusely plaqued without hemodynamically significant stenoses. Right Coronary The right coronary artery is ectatic throughout. There is 50% narrowing proximally and 40% narrowing in the mid. R PDA The right PDA has 30% narrowing proximally. RPLV The posterior lateral LV branch has a 50% narrowing proximally. Left Ventriculography Left Ventriculography was not performed. Hemodynamics The aortic pressure is 122/70 mmHg with a mean of 84 mmHg. The left ventricular pressure is 118/12 mmHg with a mean of mmHg. The left ventricular end diastolic pressure is 22 mmHg. PCI Technique Lesion Anticoagulation was achieved with Angiomax Drip. Patient was preloaded with Angiomax IV 23 mg per kg. Percutaneous coronary intervention was performed on the mid left anterior descending artery segment. The lesion stenosis prior to intervention was 80% with KWADWO 3 flow. A 6F XB LAD 3.5 Guide Catheter was used to engage the left ostium. A IG: ProwaterFlex 180CM Interventional Guidewire was used to cross the lesion. BALLOON DILATION A Balloon catheter Trek RX 2.25 X 8 was inserted and inflated up to 10.00atm for 6seconds. Additional Inflation: 12.00atm [place] 6[place]. [place] [address] CARDIAC CATH REPORT Name: CHELSEA KOEHLER RADHA Room: [address] IN [facility].#: [id number] Admission: 09/28/19 Attend Phys: Agata Martínez Discharge: Date of : 46 Report #: [id number] STENT DEPLOYMENT A drug-eluting stent Bandar RX Stent 2.18N35cr was inserted and inflated up to 12.00atm for 8seconds. Additional Inflation: 12.00atm for 5seconds. A drug-eluting stent [place] RX stent 2.5 x 8mm was inserted and inflated up to12 justina for 8 seconds and 16 justina for 7 seconds. A drug-eluting stent [place] RX stent 2.5 x 8mm was inserted and inflated up to 12 justina for 4 seconds and 14 justina for 3 seconds. Final angiography reveals 0 % stenosis with KWADWO 3 flow. PCI Technique Lesion 2 Percutaneous coronary intervention was performed on the mid left anterior descending artery segment. The lesion stenosis prior to intervention was 70% with KWADWO 3 flow. Balloon Dilation A Balloon catheter Trek RX 2.25 X 8 was inserted and inflated up to 10atm for 12seconds. Stent Deployment A drug-eluting stent [place] RX Stent 2.49B60yv was inserted and inflated up to 12atm for 15seconds. Final angiography reveals 0 % stenosis with KWADWO 3 flow. Conclusion 1. Significant stenoses involving the mid to distal LAD. 2. Widely patent stents in the proximal circumflex coronary artery. 3. Ectatic right coronary artery with non-occlusive stenoses noted. 4. Successful PCI with deployment of drug eluting stents at the sites of sequential 80 and 70 percent mid LAD stenoses with 0% residual narrowing and TIMI3 fkiw to the distal vessel Recommendations Cardiac Risk Reduction Program Aggressive Medical Therapy 1. Aggressive risk factor modification. 2. Percutaneous coronary intervention to the mid to distal left anterior descending coronary artery. 3. Continue dual antiplatelet therapy. [address] [address] CARDIAC CATH REPORT Name: CHELSEA KOEHLER Room: [address] IN M.R.#: [id number] Admission: 09/28/19 Attend Phys: Agata Martínez Discharge: Date of : 46 Report #: [id number] Medications Administered Clopidogrel Diagnostic Cath Approved by: Ag Donovan MD Date/Time: 09/29/2019 18:22:27 <ELECTRONICALLY SIGNED> By: Shamir Brady MD, FACC 10/01/19 1123 22 1123Jokari Brady MD, FACC /INF
--- NOTE | 2019-10-01 11:29 | NUR ---
ASSUMED PT CARE AT 0730, PT SITTING UP IN CHAIR, SATTING 98% ON RA, TRACING SR ON THE COLLEGE DEAN AND HAD NO C/O PAIN OR SHORTNESS OF BREATH. PT STILL HAS TUBIGRIPS ON BLE'S IN PLACE FOR BLE EDEMA. RT RADIAL CATH SITE REMAINS DRY, INTACT AND FREE FROM HEMATOMA. PT WILL SEE CARDIOLOGY TODAY AND WORK ON DC HOME. AM ASSESSMENT CHARTED, MEDS PER MAR, HOURLY ROUNDING OBSERVED, WILL CONTINUE POC.
[2019-10-01] MEDS ORDERED: FUROSEMIDE 20 M20 MG PO (11:32)
[2019-10-01 14:00] VITALS: BP 152/79
--- NOTE | 2019-10-01 14:00 | NUR ---
Pt discharging to home today, declined HH.
[2019-10-01 14:57] VITALS: BP 152/79
--- NOTE | 2019-10-01 15:53 | NUR ---
DISCHARGE ORDERS RECEIVED. 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 IV AND RETAIL SOLAR ADVISOR REMOVED. PT BELONGINGS AND PAPERWORK DC'D W/ PT VIA WC W/ NURSING STAFF TO SON'S PERSONAL VEHICLE.
== END 2019-10-01 15:50 | disposition home or self-care (01) | DRG 246 ==
LOC: M.ERS 21:59 → M.TBA-ER 22:52 → M.2W 22:52
PROVIDERS: Family Medicine; ADMIT Internal Medicine
PROC: 027037Z Dilation of Coronary Artery, One Artery with Four or More Drug-eluting Intraluminal Devices, Percutaneous Approach (ICD-10-PCS; principal; 2019-09-29)
PROC: 4A023N7 Measurement of Cardiac Sampling and Pressure, Left Heart, Percutaneous Approach (ICD-10-PCS; principal; 2019-09-29)
PROC: B211YZZ Fluoroscopy of Multiple Coronary Arteries using Other Contrast (ICD-10-PCS; principal; 2019-09-29)
DX: I25.110 Atherosclerotic heart disease of native coronary artery with unstable angina pectoris (principal); I50.33 Acute on chronic diastolic (congestive) heart failure; I13.0 Hypertensive heart and chronic kidney disease with heart failure and stage 1 through stage 4 chronic kidney disease, or unspecified chronic kidney disease; Z68.42 Body mass index [BMI] 45.0-49.9, adult; N18.3 Chronic kidney disease, stage 3 (moderate); I25.10 Atherosclerotic heart disease of native coronary artery without angina pectoris; E66.01 Morbid (severe) obesity due to excess calories; E78.5 Hyperlipidemia, unspecified; E78.00 Pure hypercholesterolemia, unspecified; M75.102 Unspecified rotator cuff tear or rupture of left shoulder, not specified as traumatic; X58.XXXA Exposure to other specified factors, initial encounter; I87.2 Venous insufficiency (chronic) (peripheral); Z82.49 Family history of ischemic heart disease and other diseases of the circulatory system; Z91.041 Radiographic dye allergy status; I25.2 Old myocardial infarction; Z95.5 Presence of coronary angioplasty implant and graft; Z79.82 Long term (current) use of aspirin; Z79.899 Other long term (current) drug therapy; Z88.8 Allergy status to other drugs, medicaments and biological substances; Z87.891 Personal history of nicotine dependence; Z91.14 Patient's other noncompliance with medication regimen; Y93.89 Activity, other specified; Y92.89 Other specified places as the place of occurrence of the external cause; Y99.8 Other external cause status

== ENCOUNTER 2019-10-04 03:07 | Inpatient (IN) | payer OTHER ==
[~2019-10-04] VITALS: Ht 177.8 cm; Wt 148.8 kg
[~2019-10-04 03:07] MED LIST changes: +NYSTATIN1 EA10 MISCELL; +NYSTATIN15 G2 TOP
[2019-10-04 03:10] VITALS: BP 146/76
[2019-10-04 03:37] LABS: ABSOLUTE BASOPHILS 0.1 thou/uL (0.0-0.2); ABSOLUTE EOSINOPHILS 0.2 thou/uL (0.0-0.7); ABSOLUTE LYMPHOCYTES 3.6 thou/uL (0.8-5.3); ABSOLUTE MONOCYTES 0.8 thou/uL (0.0-1.2); ABSOLUTE NEUTROPHILS 4.4 thou/uL (1.6-8.1); HEMATOCRIT 41.1 % (42.0-52.0); HEMOGLOBIN 13.8 gm/dL (14.0-18.0); LYMPHOCYTES 39.1 %; MCHC 33.5 g/dL (28.0-37.0); MCV 86.6 fL (80.0-100.0); MONOCYTES 9.3 %; MPV 8.1 fl. (7.2-11.1); NUCLEATED RBCS 0 /100WBC; PLATELET COUNT* 264 thou/uL (150-400); POLYS 48.6 %; RBC 4.75 mil/uL (4.50-6.00); RDW-CV 14.1 % (10.5-14.5); WBC 9.1 thou/uL (4.0-11.0)
[2019-10-04 03:45] LABS: CALCIUM 8.3 mg/dL (8.5-10.1); CREATININE 1.5 mg/dL (0.6-1.3)
[2019-10-04 03:47] LABS: APTT 28.2 Seconds (25.0-31.3); INR 1.1; PROTIME 10.8 Seconds (9.20-11.50)
[2019-10-04 03:56] LABS: ALBUMIN 3.2 g/dL (3.4-5.0); TOTAL BILIRUBIN 0.8 mg/dL (<0.1-1.0); TOTAL PROTEIN 6.6 g/dL (6.4-8.2)
[2019-10-04 04:41] LABS: URINE BILIRUBIN NEGATIVE (Negative); URINE BLOOD TRACE (Negative); URINE CLARITY CLEAR; URINE COLOR YELLOW; URINE GLUCOSE-RANDOM NEGATIVE (Negative); URINE KETONES NEGATIVE (Negative); URINE LEUKOCYTES-REFLEX NEGATIVE (Negative); URINE NITRITE-REFLEX NEGATIVE (Negative); URINE PROTEIN NEGATIVE (Negative); URINE UROBILINOGEN 0.2 E.U./dl (0.2-1.0)
[2019-10-04 04:45] VITALS: BP 141/75
[2019-10-04 05:10] VITALS: BP 146/79
--- NOTE | 2019-10-04 06:04 | NUR ---
PT RECIEVED FROM ED IN ROOM 232. ALERT AND ORIENTED X4. DENIES PAIN. SOB WITH EXERTION. CALL LIGHT WITHIN REACH AND BED IN LOW POSITION. HOURLY ROUNDING DONE FOR PT SAFETY.
[2019-10-04 08:00] VITALS: BP 147/92
[2019-10-04 12:00] VITALS: BP 164/90
[2019-10-04 13:45] VITALS: BP 164/90
--- NOTE | 2019-10-04 14:46 | EKG ---
[place] [address] ELECTROCARDIOGRAM REPORT Name: CHELSEA KOEHLER Room: [address] ADM IN M.R.#: [id number] Admission: 10/04/19 Attend Phys: Rik Gutierrez Discharge: Date of : 46 Date of Service: 10/04/192 Report #: [id number] THIS REPORT FOR: //name// [facility] ED Test Date: 2019-10-04 Test Time: 03:12:45 Pat Name: CHELSEA KOEHLER Department: Room: [facility] Gender: M Director Of Early Childhood: [place] : 1950 Requested By: Sophia Forbes Order Number: [id number] MD: Ag Donovan Measurements Intervals [place] Rate: 68 P: 37 CA: 205 QRS: 13 QRSD: 117 T: 38 QT: 396 QTc: 422 Interpretive Statements Sinus rhythm Incomplete right bundle branch block Low voltage, precordial leads Compared to ECG 09/30/2019 09:11:02 Low QRS voltage now present Electronically Signed On 10-04-2019 14:44:37 CDT by Ag Donovan [email or web address] <ELECTRONICALLY SIGNED> By: Ag Donovan MD, [facility] 10/04/19 1444 031 1 Ag Donovan MD, [facility] /EPI
--- NOTE | 2019-10-04 16:12 | NUR ---
I ASSUMED CARE OF THE PATIENT AT 0700. HE IS ALERT AND ORIENTED X4 AND IS UP WITH STAND BY ASSISTANCE. BED IS IN THE LOW LOCKED POSITION AND CALL LIGHT IS IN REACH. PAIN IS DENIED. HOURLY ROUNDING IS COMPLETED AND PATIENT NEEDS ARE MET. ASSESSMENT COMPLETED AND CELLULITIS IS IMPROVED. VENOUS DOPPLER WAS COMPLETED. PATIENT WAS D/C'D TO HOME WITH HIS SON AT 1430. DISCHARGE UNDERSTOOD AND NO SCRIPTS WERE GIVEN.
--- NOTE | 2019-10-06 12:56 | CON ---
[address] [address] CONSULTATION Name: CHELSEA KOEHLER RADHA Room: [address] IN M.R.#: [id number] Admission: 10/04/19 Attend Phys: Justa Brantley Discharge: 10/04/19 Date of : 46 Report #: [id number] THIS REPORT FOR: //name// cc: Bebe Lyman Carol ARNP ~ THIS REPORT FOR: //name// CC: Bebe Brady MD [facility] Rik Gutierrez DATE OF SERVICE: 10/04/2019 INDICATION: Heart failure. HISTORY OF PRESENT ILLNESS: The patient is a very pleasant 69-year-old gentleman with history of coronary artery disease. He had percutaneous coronary intervention with drug-eluting stent placed to the LAD last week. Prior to that in August of this year, he had percutaneous coronary intervention and stenting of the high-grade mid circumflex lesion. The patient presented yesterday with increasing shortness of breath, orthopnea and dyspnea on exertion. He was admitted to the hospital with presumed heart failure. The patient has improved significantly with diuresis. He is back to baseline. He is without other cardiac complaint. By echocardiogram, he has preserved left ventricular systolic function. He has diastolic dysfunction. PAST MEDICAL HISTORY: 1. Coronary artery disease as outlined above. 2. Diastolic heart failure. 3. Hypertension. 4. Dyslipidemia. 5. Peripheral venous insufficiency. FAMILY HISTORY: Noncontributory. SOCIAL HISTORY: The patient quit smoking remotely. He does not drink alcohol. ALLERGIES: None documented. HOME MEDICATIONS: Aspirin 81 mg daily, atorvastatin 40 mg at bedtime, carvedilol 12.5 mg b.i.d., Plavix 75 mg daily, furosemide 40 mg daily, BiDil 1 tablet daily, Zestril 40 mg daily, Nitrostat p.r.n., nystatin powder topically b.i.d., potassium chloride 10 [place] [address] CONSULTATION Name: CHELSEA KOEHLER RADHA Room: [address]#: [id number] Admission: 10/04/19 Attend Phys: Justa Brantley Discharge: 10/04/19 Date of : 46 Report #: [id number] PHYSICAL EXAMINATION: VITAL SIGNS: Stable. Blood pressure 164/90, pulse 67 and regular. GENERAL: This is a morbidly obese, pleasant white male, in no distress. Mood and affect appropriate. HEENT: Extraocular muscles intact. Mucous membranes are moist. NECK: Shows no obvious jugular venous distention. There are no carotid bruits. CHEST: Reveals clear lung lyman without wheezes or rales. CARDIOVASCULAR: Reveals a regular rhythm without gallop or murmur. ABDOMEN: Reveals a protuberant abdomen, soft. EXTREMITIES: Show 1+ pitting edema to the knees bilaterally. LABORATORY DATA: Reviewed. Electrolytes are within normal limits. BUN 21, creatinine 1.5. LFTs within normal limits. Troponins less than 0.06 on 2 separate occasions. NT-proBNP 496. IMPRESSION AND RECOMMENDATIONS: 1. Acute on chronic diastolic heart failure, improved with IV Lasix and diuresis. The patient is to resume home regimen at this time. 2. Coronary artery disease, presently stable. He is not having any symptoms to suggest angina. He has had recent percutaneous coronary intervention. Continue dual antiplatelet therapy and risk factor modification. 3. Dyslipidemia. Continue current statin agent. At this point in time, the patient appears stable for discharge to home. <ELECTRONICALLY SIGNED> By: Ag Donovan MD, FACC 10/06/19 1256 1352 1904Ag Donovan MD, FACC /nt
== END 2019-10-04 14:30 | disposition home or self-care (01) | DRG 291 ==
LOC: M.ERS 03:07 → M.TBA-ER 03:56 → M.2W 04:27
PROVIDERS: Personal Emergency Response Attendant; ADMIT Internal Medicine
DX: I13.0 Hypertensive heart and chronic kidney disease with heart failure and stage 1 through stage 4 chronic kidney disease, or unspecified chronic kidney disease (principal); I50.33 Acute on chronic diastolic (congestive) heart failure; Z68.42 Body mass index [BMI] 45.0-49.9, adult; B49 Unspecified mycosis; L03.119 Cellulitis of unspecified part of limb; I25.10 Atherosclerotic heart disease of native coronary artery without angina pectoris; E78.5 Hyperlipidemia, unspecified; E66.01 Morbid (severe) obesity due to excess calories; N18.3 Chronic kidney disease, stage 3 (moderate); Z79.82 Long term (current) use of aspirin; Z79.899 Other long term (current) drug therapy; I25.2 Old myocardial infarction; Z95.5 Presence of coronary angioplasty implant and graft; Z87.891 Personal history of nicotine dependence

== ENCOUNTER → 2019-10-19 | Outpatient (CLI) | payer OTHER | LOC: M.WC 08:00 | DX: I89.0 Lymphedema, not elsewhere classified (principal); I87.2 Venous insufficiency (chronic) (peripheral); I25.10 Atherosclerotic heart disease of native coronary artery without angina pectoris; E78.5 Hyperlipidemia, unspecified; I25.2 Old myocardial infarction; I11.0 Hypertensive heart disease with heart failure; I50.9 Heart failure, unspecified; H26.9 Unspecified cataract; G62.9 Polyneuropathy, unspecified; E66.01 Morbid (severe) obesity due to excess calories; F41.9 Anxiety disorder, unspecified; Z87.891 Personal history of nicotine dependence; Z95.5 Presence of coronary angioplasty implant and graft; Z79.82 Long term (current) use of aspirin; Z68.42 Body mass index [BMI] 45.0-49.9, adult ==

== ENCOUNTER 2019-11-17 18:32 | Observation (INO) | payer OTHER ==
[~2019-11-17] VITALS: Ht 177.8 cm; Wt 149.7 kg
[2019-11-17 18:45] VITALS: BP 142/80
[2019-11-17] MEDS ORDERED: SPIRONOLACTONE25 MG PO (18:51)
[2019-11-17 19:46] LABS: ABSOLUTE BASOPHILS 0.1 thou/uL (0.0-0.2); ABSOLUTE EOSINOPHILS 0.2 thou/uL (0.0-0.7); ABSOLUTE LYMPHOCYTES 3.7 thou/uL (0.8-5.3); ABSOLUTE MONOCYTES 1.1 thou/uL (0.0-1.2); ABSOLUTE NEUTROPHILS 6.2 thou/uL (1.6-8.1); BASOPHILS 0.7 %; EOSINOPHILS 1.9 %; HEMATOCRIT 40.3 % (42.0-52.0); HEMOGLOBIN 13.5 gm/dL (14.0-18.0); LYMPHOCYTES 32.9 %; MCH 28.7 pg (26.0-34.0); MCHC 33.4 g/dL (28.0-37.0); MONOCYTES 9.4 %; MPV 7.7 fl. (7.2-11.1); NUCLEATED RBCS 0 /100WBC; PLATELET COUNT* 275 thou/uL (150-400); POLYS 55.1 %; RBC 4.69 mil/uL (4.50-6.00); RDW-CV 13.4 % (10.5-14.5); WBC 11.2 thou/uL (4.0-11.0)
[2019-11-17 19:54] LABS: CREATININE 1.9 mg/dL (0.6-1.3); POTASSIUM 4.3 mmol/L (3.5-5.1)
[2019-11-17 19:56] LABS: INR 1.1; PROTIME 10.9 Seconds (9.20-11.50)
[2019-11-17 20:05] LABS: ALBUMIN 3.2 g/dL (3.4-5.0); TOTAL BILIRUBIN 0.9 mg/dL (<0.1-1.0); TOTAL PROTEIN 7.1 g/dL (6.4-8.2)
[2019-11-17 22:52] VITALS: BP 132/70
[2019-11-17 23:09] VITALS: BP 147/54
[2019-11-18] MEDS ORDERED: IMDUR 60 MG TAB60 M1 PO (00:25)
[2019-11-18] MEDS ORDERED: VITAMIN D3125 MCG PO (00:27)
[2019-11-18 01:34] LABS: URINE BILIRUBIN NEGATIVE (Negative); URINE BLOOD TRACE (Negative); URINE CLARITY CLEAR; URINE COLOR YELLOW; URINE GLUCOSE-RANDOM NEGATIVE (Negative); URINE KETONES NEGATIVE (Negative); URINE LEUKOCYTES-REFLEX NEGATIVE (Negative); URINE NITRITE-REFLEX NEGATIVE (Negative); URINE PROTEIN NEGATIVE (Negative); URINE UROBILINOGEN 0.2 E.U./dl (0.2-1.0)
--- NOTE | 2019-11-18 01:48 | NUR ---
ALERT AND ORIENTED X4 BUT FORGETFUL (AND POOR HISTORIAN) MALE PATIENT TO ROOM 102 BY CART FROM ER IN STABLE CONDITION. ADMISSION ROUTINES IN PROGRESS. MEDS HAVE BEEN RECONCILED, ORDERED AND PROVIDED INDICATED. PATIENT UP TO BR TO VOID WITH URINE SAMPLE TO LAB FOR UA. CGA/GAIT BELT FOR AMBULATION. HS SNACK PROVIDED. CALL TO PATIENT FAMILY FROM THE ROOM DURING INITIAL ASSESSMENT TO VERIFY HOME MEDS. STATES PATIENT HAS HAD SHORT-TERM MEMORY LOSS. NO SPECIFIC DIAGNOSIS AT THIS TIME. ALSO PATIENT HAS HAD EAR PRESSURE WITH DECREASED HEARING THE LAST COUPLE OF WEEKS. DUE TO OFFICE APPOINTMENT AVAILABILITY HE HAS NOT HAD IT CHECKED OUT. VITAL SIGNS STABLE. CONTINUE TO MONITOR.
--- NOTE | 2019-11-18 04:34 | NUR ---
PATIENT RESTING AT INTERVALS ON HOURLY ROUNDS. UP TO SIT IN CHAIR DURING THE NIGHT. TRANSFERING CGA. ABX DOSING BY PHARMACY. US BLE THIS AM. CONTINUE TO MONITOR.
--- NOTE | 2019-11-18 09:09 | EKG ---
[place] [address] ELECTROCARDIOGRAM REPORT Name: CHELSEA KOEHLER Room: [address] M.R.#: [id number] Admission: 11/17/19 Attend Phys: Magdaleno lan Sa Discharge: Date of : 46 Date of Service: 11/17/191922 Report #: [id number] THIS REPORT FOR: //name// [facility] ED Test Date: 2019-11-17 Test Time: 19:23:58 Pat Name: CHELSEA KOEHLER Department: Room: [facility] Gender: M [place] Operator: [place] : 1950 Requested By: Kylie Carlin Order Number: [id number] MD: Brent Barrera Measurements Intervals [place] Rate: 76 P: 41 WV: 200 QRS: 18 QRSD: 117 T: 52 QT: 379 QTc: 427 Interpretive Statements Sinus rhythm Incomplete right bundle branch block Low voltage, precordial leads Compared to ECG 10/04/2019 03:12:45 No significant changes Electronically Signed On 11-18-2019 9:08:17 CDT by Brent Barrera [email or web address] <ELECTRONICALLY SIGNED> By: Brent Barrera MD, [facility] 11/18/19 0908 22 22 Brent Barrera MD, [facility] /EPI
[2019-11-18 09:24] VITALS: BP 145/85
--- NOTE | 2019-11-18 13:23 | NUR ---
PT TO ULTRASOUND WITH DRILL GRINDER.
--- NOTE | 2019-11-18 14:35 | NUR ---
PT BACK FROM ULTRASOUND
--- NOTE | 2019-11-18 15:00 | NUR ---
PT.SITTING UP IN BED ALMOST AT 90 DEGREES. ENCOURAGED HIM TO LIE HEAD OF BED BACK ,IF ABLE TO TOLERATE, AND ELEVATE LEGS. HE SAID HE JUST HURTS SO BAD. WANTS TO GO HOME. EXPLAINED NEED FOR IVAB FOR SEV.DAYS THEN SWITCH TO PO. LEGS HAVE TO MAKE PROGRESS WITH LESS SWELLING AND REDNESS. HE REQUESTED PAIN MED. RN NOTIFIED. PT.SAID HE LIVES WITH HIS AND SON. NO USE OF DME. NO HX OF HH OR SNF. SON DRIVES HE AND TO [facility]. WILL DO THEIR ERRANDS, SHOPPING,ETC. SON HELPS NEEDED-COOKING,CLEANING ETC. CM WILL FOLLOW.
[2019-11-18 16:00] VITALS: BP 134/58
--- NOTE | 2019-11-18 17:29 | NUR ---
PT A&Ox4, FORGETFUL AT TIMES. IV PATENT, SL. PAIN CONTROLLED WITH MORPHINE. NAUSEA CONTROLLED WITH ZOFRAN. UP AD FRANZT. TOLERATING FOOD. CALL LIGHT WITHIN REACH. WILL CONTINUE TO MONITOR.
[2019-11-18 20:00] VITALS: BP 103/65
[2019-11-19 08:09] VITALS: BP 147/79
[2019-11-19 09:45] LABS: ABSOLUTE BASOPHILS 0.1 thou/uL (0.0-0.2); ABSOLUTE EOSINOPHILS 0.3 thou/uL (0.0-0.7); ABSOLUTE LYMPHOCYTES 2.9 thou/uL (0.8-5.3); ABSOLUTE MONOCYTES 0.8 thou/uL (0.0-1.2); BASOPHILS 0.8 %; EOSINOPHILS 3.5 %; HEMATOCRIT 37.6 % (42.0-52.0); HEMOGLOBIN 12.6 gm/dL (14.0-18.0); LYMPHOCYTES 36.3 %; MCH 28.8 pg (26.0-34.0); MCHC 33.5 g/dL (28.0-37.0); MCV 85.9 fL (80.0-100.0); MONOCYTES 10.2 %; MPV 7.4 fl. (7.2-11.1); NUCLEATED RBCS 0 /100WBC; PLATELET COUNT* 243 thou/uL (150-400); POLYS 49.2 %; RBC 4.38 mil/uL (4.50-6.00); RDW-CV 13.5 % (10.5-14.5)
[2019-11-19 09:57] LABS: CALCIUM 8.6 mg/dL (8.5-10.1); CREATININE 1.7 mg/dL (0.6-1.3); POTASSIUM 4.3 mmol/L (3.5-5.1)
[2019-11-19 10:02] LABS: ALBUMIN 2.9 g/dL (3.4-5.0); TOTAL BILIRUBIN 1.1 mg/dL (<0.1-1.0); TOTAL PROTEIN 6.4 g/dL (6.4-8.2)
[2019-11-19 10:37] VITALS: BP 147/79
[2019-11-19] MEDS ORDERED: MINOCYCLINE HC100 M2 PO (10:53)
[2019-11-19] MEDS ORDERED: TRAMADOL 50 MG50 MG PO (10:53)
--- NOTE | 2019-11-19 12:47 | NUR ---
PT.TO DISCHARGE TODAY WITH HOME HEALTH. SPOKE WITH PT.IN ROOM. BLE LOOK LESS RED AND LESS EDEMA TODAY. HE WAS SITTING ON SIDE OF BED WITH LEGS DEPENDENT.ENCOURAGED HIM TO ELEVATE LEGS MUCH POSSIBLE. HE SAID HE HAS A RECLINER AT HOME. DISCUSSED HOME HEALTH. HE WANTED ME TO TALK TO . CM CALLED [facility]/[phone]. SHE AT FIRST SAID SHE DIDN'T THINK THEY NEEDED HH. TOLD HER IT WOULD JUST BE A COUPLE OF VISITS TO CHECK HIS LEGS, MANAGE HIS MEDS,REINFORCE TEACHING. SHE SAID OK AND SAID SHE WOULD LIKE TO USE [facility]. FAXED REFERAL AND DISCHARGE ORDERS TO [facility]. PUT ALL INFORMATION ON DISCHARGE INSTRUCTIONS.
[2019-11-19 13:26] VITALS: BP 147/79
--- NOTE | 2019-11-19 13:27 | NUR ---
PT GIVEN DISCHARGE INSTRUCTIONS, PRESCRIPTIONS, AND CARE NOTES. IV REMOVED. PT BELONGINGS GATHERED. TALKED WITH SON ABOUT DISCHARGE INFORMATION. PT WAS IN A SANTO TO DC, UNABLE TO GET WOUND DC PICTURES. FALL RISK PRECAUTIONS IN PLACE. HOURLY ROUNDING COMPLETED. PT LEFT VIA WHEELCHAIR WITH NURSING STAFF TO HOME WITH HOME HEALTH.
== END 2019-11-19 13:29 | disposition home health service (06) ==
LOC: M.ERS 18:32 → M.TBA-ER 20:50 → M.ORTHSURG 20:50
PROVIDERS: Emergency Medicine; Internal Medicine; ADMIT Family Medicine; ATTEND Family Medicine
DX: L03.116 Cellulitis of left lower limb (principal); L03.115 Cellulitis of right lower limb; I11.0 Hypertensive heart disease with heart failure; I50.9 Heart failure, unspecified; I25.110 Atherosclerotic heart disease of native coronary artery with unstable angina pectoris; E78.2 Mixed hyperlipidemia; R79.89 Other specified abnormal findings of blood chemistry; Z87.891 Personal history of nicotine dependence

== ENCOUNTER → 2020-05-25 | Outpatient (CLI) | payer OTHER ==
[~2020-05-25] MED LIST changes: +IMDUR 60 MG TAB60 M1 PO; +MINOCYCLINE HC100 M2 PO; +SPIRONOLACTONE25 MG PO; +TRAMADOL 50 MG50 MG PO; +VITAMIN D3125 MCG PO
[2020-05-25 15:08] LABS: CALCIUM 9.4 mg/dL (8.5-10.1); CREATININE 1.9 mg/dL (0.6-1.3); POTASSIUM 4.9 mmol/L (3.5-5.1)
== END ==
LOC: M.LAB 14:07
PROVIDERS: ATTEND Nurse Practitioner
DX: I50.31 Acute diastolic (congestive) heart failure (principal)

== ENCOUNTER → 2020-06-29 | Outpatient (CLI) | payer OTHER ==
--- NOTE | 2020-06-29 14:46 | 2DMMODE ---
[place] [address] 2 D/M-MODE ECHOCARDIOGRAM Name: CHELSEA KOEHLER RADHA Room: [facility]#: [id number] Admission: 06/29/20 Attend Phys: Sherita Mistry, Discharge: Date of : 46 Date of Service: 06/29/20 1446 Report #: [id number] THIS REPORT FOR: cc: Bebe Lyman Carol ARNP Holkins,Shamir Rinaldi MD [facility] ~ APPROVED REPORT Study performed: 06/29/2020 09:44:08 EXAM: Comprehensive 2D, Doppler, and color-flow Echocardiogram Patient Location: Out-Patient BSA: 2.64 HR: 79 bpm BP: 120/77 mmHg Other Information Study Quality: Technically Limited Technically limited study due to body habitus, uncooperative patient, inability to position patient. Indications Congestive Heart Failure Dyspnea 2D Dimensions IVSd: 10.81 (7-11mm) LVOT Diam: 21.13 (18-24mm) LVDd: 46.54 mm PWd: 10.34 (7-11mm) Ascending Ao: 35.36 (22-36mm) LVDs: 21.91 (25-40mm) Aortic Root: 29.29 mm Aortic Valve AoV Peak Jack.: 1.11 m/s AO Peak Gr.: 4.89 mmHg LVOT Max P.50 mmHg AO Mean Gr.: 2.80 mmHg LVOT Mean P.29 mmHg LVOT Max V: 0.93 m/s AO V2 VTI: 24.29 cm LVOT Mean V: 0.73 m/s KRISTINA (VTI): 2.62 cm2 LVOT V1 VTI: 18.16 cm Mitral Valve E/A Ratio: 0.93 MV Decel. Time: 248.63 [place] [address] 2 D/M-MODE ECHOCARDIOGRAM Name: CHELSEA KOEHLER Room: [facility]#: [id number] Admission: 06/29/20 Attend Phys: Sherita Mistry, Discharge: Date of : 46 Date of Service: 06/29/20 1446 Report #: [id number] MV E Max Jack.: 0.93 m/s MV PHT: 72.10 ms MVA (PHT): 3.05 cm2 Pulmonary Valve PV Peak Jack.: 1.14 m/s PV Peak Gr.: 5.17 mmHg Left Ventricle The left ventricle is normal size. There is normal LV segmental wall motion. There is normal left ventricular wall thickness. Left ventricular systolic function is normal. The left ventricular ejection fraction is within the normal range. LVEF is 60%. Grade I - abnormal relaxation pattern. Right Ventricle The right ventricle is normal size. Atria The left atrium size is normal. Aortic Valve Mild aortic valve sclerosis. Mitral Valve The mitral valve is normal in structure. Tricuspid Valve The tricuspid valve is normal in structure. Pulmonic Valve The pulmonary valve is normal in structure. There is no pulmonic valvular regurgitation. Great Vessels The aortic root is normal in size. Pericardium There is no pericardial effusion. <Conclusion> The left ventricle is normal size. There is normal left ventricular wall thickness. Left ventricular systolic function is normal. The left ventricular ejection fraction is within the normal range. LVEF is 60%. [place] [address] 2 D/M-MODE ECHOCARDIOGRAM Name: CHELSEA KOEHLER RADHA Room: [facility]#: [id number] Admission: 06/29/20 Attend Phys: Sherita Mistry, Discharge: Date of : 46 Date of Service: 06/29/20 1446 Report #: [id number] Grade I - abnormal relaxation pattern. The right ventricle is normal size. Mild aortic valve sclerosis. The mitral valve is normal in structure. The tricuspid valve is normal in structure. There is no pericardial effusion. There is normal LV segmental wall motion. <ELECTRONICALLY SIGNED> By: Shamir Brady MD, [facility] 06/29/20 1446 1446 1446 Shamir Brady MD, FACC /INF
== END ==
LOC: M.CRD 08:50
PROVIDERS: ATTEND Nurse Practitioner
DX: I35.1 Nonrheumatic aortic (valve) insufficiency (principal); I50.32 Chronic diastolic (congestive) heart failure

== ENCOUNTER → 2020-08-09 | Outpatient (CLI) | payer OTHER | LOC: M.WC 07:48 | PROVIDERS: ATTEND Emergency Medicine Undersea and Hyperbaric Medicine | DX: L97.811 Non-pressure chronic ulcer of other part of right lower leg limited to breakdown of skin (principal); L89.619 Pressure ulcer of right heel, unspecified stage; E66.01 Morbid (severe) obesity due to excess calories; E78.5 Hyperlipidemia, unspecified; H26.9 Unspecified cataract; I89.0 Lymphedema, not elsewhere classified; I11.0 Hypertensive heart disease with heart failure; I50.9 Heart failure, unspecified; I25.10 Atherosclerotic heart disease of native coronary artery without angina pectoris; I25.2 Old myocardial infarction; I87.2 Venous insufficiency (chronic) (peripheral); G62.9 Polyneuropathy, unspecified; F41.9 Anxiety disorder, unspecified; Z68.42 Body mass index [BMI] 45.0-49.9, adult; Z87.891 Personal history of nicotine dependence; Z79.82 Long term (current) use of aspirin ==

== ENCOUNTER → 2020-08-11 | Outpatient (CLI) | payer OTHER | LOC: M.WC 13:49 | PROVIDERS: ATTEND Emergency Medicine Undersea and Hyperbaric Medicine | DX: L97.811 Non-pressure chronic ulcer of other part of right lower leg limited to breakdown of skin (principal); L89.619 Pressure ulcer of right heel, unspecified stage; E66.01 Morbid (severe) obesity due to excess calories; E78.5 Hyperlipidemia, unspecified; H26.9 Unspecified cataract; I89.0 Lymphedema, not elsewhere classified; I11.0 Hypertensive heart disease with heart failure; I50.9 Heart failure, unspecified; I25.10 Atherosclerotic heart disease of native coronary artery without angina pectoris; I25.2 Old myocardial infarction; I87.2 Venous insufficiency (chronic) (peripheral); G62.9 Polyneuropathy, unspecified; F41.9 Anxiety disorder, unspecified; Z68.42 Body mass index [BMI] 45.0-49.9, adult; Z87.891 Personal history of nicotine dependence; Z79.82 Long term (current) use of aspirin ==

== ENCOUNTER → 2020-08-16 | Outpatient (CLI) | payer OTHER | LOC: M.WC 08:50 | PROVIDERS: ATTEND Emergency Medicine Undersea and Hyperbaric Medicine | DX: L97.812 Non-pressure chronic ulcer of other part of right lower leg with fat layer exposed (principal); L89.613 Pressure ulcer of right heel, stage 3; E66.01 Morbid (severe) obesity due to excess calories; E78.5 Hyperlipidemia, unspecified; H26.9 Unspecified cataract; I89.0 Lymphedema, not elsewhere classified; I11.0 Hypertensive heart disease with heart failure; I50.9 Heart failure, unspecified; I25.10 Atherosclerotic heart disease of native coronary artery without angina pectoris; I25.2 Old myocardial infarction; I87.2 Venous insufficiency (chronic) (peripheral); G62.9 Polyneuropathy, unspecified; F41.9 Anxiety disorder, unspecified; Z68.42 Body mass index [BMI] 45.0-49.9, adult; Z87.891 Personal history of nicotine dependence; Z79.82 Long term (current) use of aspirin ==

== ENCOUNTER → 2020-08-23 | Outpatient (CLI) | payer OTHER | LOC: M.WC 08:29 | PROVIDERS: ATTEND Emergency Medicine Undersea and Hyperbaric Medicine | DX: L97.812 Non-pressure chronic ulcer of other part of right lower leg with fat layer exposed (principal); L89.613 Pressure ulcer of right heel, stage 3; E66.01 Morbid (severe) obesity due to excess calories; E78.5 Hyperlipidemia, unspecified; H26.9 Unspecified cataract; I89.0 Lymphedema, not elsewhere classified; I11.0 Hypertensive heart disease with heart failure; I50.9 Heart failure, unspecified; I25.10 Atherosclerotic heart disease of native coronary artery without angina pectoris; I25.2 Old myocardial infarction; I87.2 Venous insufficiency (chronic) (peripheral); G62.9 Polyneuropathy, unspecified; F41.9 Anxiety disorder, unspecified; Z68.42 Body mass index [BMI] 45.0-49.9, adult; Z87.891 Personal history of nicotine dependence; Z79.82 Long term (current) use of aspirin ==

== ENCOUNTER → 2020-08-30 | Outpatient (CLI) | payer OTHER | LOC: M.WC 08:36 | PROVIDERS: ATTEND Emergency Medicine Undersea and Hyperbaric Medicine | DX: L97.812 Non-pressure chronic ulcer of other part of right lower leg with fat layer exposed (principal); E66.01 Morbid (severe) obesity due to excess calories; E78.5 Hyperlipidemia, unspecified; H26.9 Unspecified cataract; I89.0 Lymphedema, not elsewhere classified; I11.0 Hypertensive heart disease with heart failure; I50.9 Heart failure, unspecified; I25.10 Atherosclerotic heart disease of native coronary artery without angina pectoris; I25.2 Old myocardial infarction; I87.2 Venous insufficiency (chronic) (peripheral); G62.9 Polyneuropathy, unspecified; F41.9 Anxiety disorder, unspecified; Z68.42 Body mass index [BMI] 45.0-49.9, adult; Z87.891 Personal history of nicotine dependence; Z79.82 Long term (current) use of aspirin ==

== ENCOUNTER → 2020-09-06 | Outpatient (CLI) | payer OTHER | LOC: M.WC 12:31 | PROVIDERS: ATTEND Emergency Medicine Undersea and Hyperbaric Medicine | DX: L97.812 Non-pressure chronic ulcer of other part of right lower leg with fat layer exposed (principal); E66.01 Morbid (severe) obesity due to excess calories; E78.5 Hyperlipidemia, unspecified; H26.9 Unspecified cataract; I89.0 Lymphedema, not elsewhere classified; I11.0 Hypertensive heart disease with heart failure; I50.9 Heart failure, unspecified; I25.10 Atherosclerotic heart disease of native coronary artery without angina pectoris; I25.2 Old myocardial infarction; I87.2 Venous insufficiency (chronic) (peripheral); G62.9 Polyneuropathy, unspecified; F41.9 Anxiety disorder, unspecified; Z68.42 Body mass index [BMI] 45.0-49.9, adult; Z87.891 Personal history of nicotine dependence ==

== ENCOUNTER → 2020-09-12 | Outpatient (CLI) | payer OTHER | LOC: M.ULTRA 12:32 | PROVIDERS: ATTEND Emergency Medicine Undersea and Hyperbaric Medicine | DX: I89.0 Lymphedema, not elsewhere classified (principal); L97.811 Non-pressure chronic ulcer of other part of right lower leg limited to breakdown of skin ==

== ENCOUNTER → 2020-09-13 | Outpatient (CLI) | payer OTHER | LOC: M.WC 08:34 | PROVIDERS: ATTEND Emergency Medicine Undersea and Hyperbaric Medicine | DX: L97.812 Non-pressure chronic ulcer of other part of right lower leg with fat layer exposed (principal); E66.01 Morbid (severe) obesity due to excess calories; E78.5 Hyperlipidemia, unspecified; H26.9 Unspecified cataract; I89.0 Lymphedema, not elsewhere classified; I11.0 Hypertensive heart disease with heart failure; I50.9 Heart failure, unspecified; I25.10 Atherosclerotic heart disease of native coronary artery without angina pectoris; I25.2 Old myocardial infarction; I87.2 Venous insufficiency (chronic) (peripheral); G62.9 Polyneuropathy, unspecified; F41.9 Anxiety disorder, unspecified; Z68.42 Body mass index [BMI] 45.0-49.9, adult; Z87.891 Personal history of nicotine dependence ==

== ENCOUNTER → 2020-09-20 | Outpatient (CLI) | payer OTHER | LOC: M.WC 08:45 | PROVIDERS: ATTEND Emergency Medicine Undersea and Hyperbaric Medicine | DX: L97.812 Non-pressure chronic ulcer of other part of right lower leg with fat layer exposed (principal); L97.312 Non-pressure chronic ulcer of right ankle with fat layer exposed; E66.01 Morbid (severe) obesity due to excess calories; E78.5 Hyperlipidemia, unspecified; H26.9 Unspecified cataract; I89.0 Lymphedema, not elsewhere classified; I11.0 Hypertensive heart disease with heart failure; I50.9 Heart failure, unspecified; I25.10 Atherosclerotic heart disease of native coronary artery without angina pectoris; I25.2 Old myocardial infarction; I87.2 Venous insufficiency (chronic) (peripheral); G62.9 Polyneuropathy, unspecified; F41.9 Anxiety disorder, unspecified; Z68.42 Body mass index [BMI] 45.0-49.9, adult; Z87.891 Personal history of nicotine dependence ==

== ENCOUNTER → 2020-09-27 | Outpatient (CLI) | payer OTHER | LOC: M.WC 08:29 | PROVIDERS: ATTEND Emergency Medicine Undersea and Hyperbaric Medicine | DX: L97.812 Non-pressure chronic ulcer of other part of right lower leg with fat layer exposed (principal); L97.312 Non-pressure chronic ulcer of right ankle with fat layer exposed; L89.622 Pressure ulcer of left heel, stage 2; L97.421 Non-pressure chronic ulcer of left heel and midfoot limited to breakdown of skin; E66.01 Morbid (severe) obesity due to excess calories; E78.5 Hyperlipidemia, unspecified; H26.9 Unspecified cataract; I89.0 Lymphedema, not elsewhere classified; I11.0 Hypertensive heart disease with heart failure; I50.9 Heart failure, unspecified; I25.10 Atherosclerotic heart disease of native coronary artery without angina pectoris; I25.2 Old myocardial infarction; I87.2 Venous insufficiency (chronic) (peripheral); G62.9 Polyneuropathy, unspecified; F41.9 Anxiety disorder, unspecified; Z68.42 Body mass index [BMI] 45.0-49.9, adult; Z87.891 Personal history of nicotine dependence ==

== ENCOUNTER → 2020-10-04 | Outpatient (CLI) | payer OTHER | LOC: M.WC 08:45 | PROVIDERS: ATTEND Emergency Medicine Undersea and Hyperbaric Medicine | DX: L97.812 Non-pressure chronic ulcer of other part of right lower leg with fat layer exposed (principal); L97.312 Non-pressure chronic ulcer of right ankle with fat layer exposed; L89.622 Pressure ulcer of left heel, stage 2; L97.421 Non-pressure chronic ulcer of left heel and midfoot limited to breakdown of skin; E66.01 Morbid (severe) obesity due to excess calories; E78.5 Hyperlipidemia, unspecified; H26.9 Unspecified cataract; I89.0 Lymphedema, not elsewhere classified; I11.0 Hypertensive heart disease with heart failure; I50.9 Heart failure, unspecified; I25.10 Atherosclerotic heart disease of native coronary artery without angina pectoris; I25.2 Old myocardial infarction; I87.2 Venous insufficiency (chronic) (peripheral); G62.9 Polyneuropathy, unspecified; F41.9 Anxiety disorder, unspecified; Z68.42 Body mass index [BMI] 45.0-49.9, adult; Z87.891 Personal history of nicotine dependence ==

== ENCOUNTER → 2020-10-11 | Outpatient (CLI) | payer OTHER | LOC: M.WC 08:39 | PROVIDERS: ATTEND Emergency Medicine Undersea and Hyperbaric Medicine | DX: L97.812 Non-pressure chronic ulcer of other part of right lower leg with fat layer exposed (principal); L97.312 Non-pressure chronic ulcer of right ankle with fat layer exposed; L89.622 Pressure ulcer of left heel, stage 2; L97.421 Non-pressure chronic ulcer of left heel and midfoot limited to breakdown of skin; E66.01 Morbid (severe) obesity due to excess calories; E78.5 Hyperlipidemia, unspecified; H26.9 Unspecified cataract; I89.0 Lymphedema, not elsewhere classified; I11.0 Hypertensive heart disease with heart failure; I50.9 Heart failure, unspecified; I25.10 Atherosclerotic heart disease of native coronary artery without angina pectoris; I25.2 Old myocardial infarction; I87.2 Venous insufficiency (chronic) (peripheral); G62.9 Polyneuropathy, unspecified; F41.9 Anxiety disorder, unspecified; Z68.42 Body mass index [BMI] 45.0-49.9, adult; Z87.891 Personal history of nicotine dependence ==

== ENCOUNTER → 2020-10-12 | Outpatient (CLI) | payer OTHER ==
[2020-10-12 10:56] LABS: CREATININE 2.4 mg/dL (0.6-1.3)
== END ==
LOC: M.LAB 10:28 → M.CT 11:30
PROVIDERS: ATTEND Emergency Medicine Undersea and Hyperbaric Medicine
DX: Z01.812 Encounter for preprocedural laboratory examination (principal); L97.811 Non-pressure chronic ulcer of other part of right lower leg limited to breakdown of skin; I89.0 Lymphedema, not elsewhere classified; I70.0 Atherosclerosis of aorta; K59.00 Constipation, unspecified; I70.202 Unspecified atherosclerosis of native arteries of extremities, left leg; R60.0 Localized edema

== ENCOUNTER → 2020-10-13 | Outpatient (CLI) | payer OTHER | LOC: M.WC 15:00 | PROVIDERS: ATTEND Emergency Medicine Undersea and Hyperbaric Medicine | DX: L97.812 Non-pressure chronic ulcer of other part of right lower leg with fat layer exposed (principal); L97.312 Non-pressure chronic ulcer of right ankle with fat layer exposed; L89.622 Pressure ulcer of left heel, stage 2; S81.802D Unspecified open wound, left lower leg, subsequent encounter; I87.2 Venous insufficiency (chronic) (peripheral); I89.0 Lymphedema, not elsewhere classified; I25.10 Atherosclerotic heart disease of native coronary artery without angina pectoris; E78.5 Hyperlipidemia, unspecified; I25.2 Old myocardial infarction; I11.0 Hypertensive heart disease with heart failure; I50.9 Heart failure, unspecified; G62.9 Polyneuropathy, unspecified; E66.01 Morbid (severe) obesity due to excess calories; F41.9 Anxiety disorder, unspecified; F51.9 Sleep disorder not due to a substance or known physiological condition, unspecified; Z68.42 Body mass index [BMI] 45.0-49.9, adult; Z87.891 Personal history of nicotine dependence; X58.XXXD Exposure to other specified factors, subsequent encounter ==

== ENCOUNTER → 2020-10-18 | Outpatient (CLI) | payer OTHER | LOC: M.WC 08:54 | PROVIDERS: ATTEND Emergency Medicine Undersea and Hyperbaric Medicine | DX: L97.812 Non-pressure chronic ulcer of other part of right lower leg with fat layer exposed (principal); L89.622 Pressure ulcer of left heel, stage 2; L97.421 Non-pressure chronic ulcer of left heel and midfoot limited to breakdown of skin; E66.01 Morbid (severe) obesity due to excess calories; E78.5 Hyperlipidemia, unspecified; H26.9 Unspecified cataract; I89.0 Lymphedema, not elsewhere classified; I11.0 Hypertensive heart disease with heart failure; I50.9 Heart failure, unspecified; I25.10 Atherosclerotic heart disease of native coronary artery without angina pectoris; I25.2 Old myocardial infarction; I87.2 Venous insufficiency (chronic) (peripheral); G62.9 Polyneuropathy, unspecified; F41.9 Anxiety disorder, unspecified; Z68.42 Body mass index [BMI] 45.0-49.9, adult; Z87.891 Personal history of nicotine dependence ==

== ENCOUNTER → 2020-10-25 | Outpatient (CLI) | payer OTHER | LOC: M.WC 08:31 | PROVIDERS: ATTEND Emergency Medicine Undersea and Hyperbaric Medicine | DX: L97.812 Non-pressure chronic ulcer of other part of right lower leg with fat layer exposed (principal); L89.622 Pressure ulcer of left heel, stage 2; L97.421 Non-pressure chronic ulcer of left heel and midfoot limited to breakdown of skin; E66.01 Morbid (severe) obesity due to excess calories; E78.5 Hyperlipidemia, unspecified; H26.9 Unspecified cataract; I89.0 Lymphedema, not elsewhere classified; I11.0 Hypertensive heart disease with heart failure; I50.9 Heart failure, unspecified; I25.10 Atherosclerotic heart disease of native coronary artery without angina pectoris; I25.2 Old myocardial infarction; I87.2 Venous insufficiency (chronic) (peripheral); G62.9 Polyneuropathy, unspecified; F41.9 Anxiety disorder, unspecified; Z68.42 Body mass index [BMI] 45.0-49.9, adult; Z87.891 Personal history of nicotine dependence ==

== ENCOUNTER → 2020-11-01 | Outpatient (CLI) | payer OTHER | LOC: M.WC 08:34 | PROVIDERS: ATTEND Emergency Medicine Undersea and Hyperbaric Medicine | DX: L97.812 Non-pressure chronic ulcer of other part of right lower leg with fat layer exposed (principal); L89.622 Pressure ulcer of left heel, stage 2; L97.421 Non-pressure chronic ulcer of left heel and midfoot limited to breakdown of skin; E66.01 Morbid (severe) obesity due to excess calories; E78.5 Hyperlipidemia, unspecified; H26.9 Unspecified cataract; I89.0 Lymphedema, not elsewhere classified; I11.0 Hypertensive heart disease with heart failure; I50.9 Heart failure, unspecified; I25.10 Atherosclerotic heart disease of native coronary artery without angina pectoris; I25.2 Old myocardial infarction; I87.2 Venous insufficiency (chronic) (peripheral); G62.9 Polyneuropathy, unspecified; F41.9 Anxiety disorder, unspecified; Z68.42 Body mass index [BMI] 45.0-49.9, adult; Z87.891 Personal history of nicotine dependence ==

== ENCOUNTER → 2020-11-08 | Outpatient (CLI) | payer OTHER | LOC: M.WC 08:01 | PROVIDERS: ATTEND Emergency Medicine Undersea and Hyperbaric Medicine | DX: L97.812 Non-pressure chronic ulcer of other part of right lower leg with fat layer exposed (principal); E66.01 Morbid (severe) obesity due to excess calories; E78.5 Hyperlipidemia, unspecified; H26.9 Unspecified cataract; I89.0 Lymphedema, not elsewhere classified; I11.0 Hypertensive heart disease with heart failure; I50.9 Heart failure, unspecified; I25.10 Atherosclerotic heart disease of native coronary artery without angina pectoris; I25.2 Old myocardial infarction; I87.2 Venous insufficiency (chronic) (peripheral); G62.9 Polyneuropathy, unspecified; F41.9 Anxiety disorder, unspecified; Z68.42 Body mass index [BMI] 45.0-49.9, adult; Z87.891 Personal history of nicotine dependence ==

== ENCOUNTER → 2020-11-15 | Outpatient (CLI) | payer OTHER | LOC: M.WC 08:56 | PROVIDERS: ATTEND Emergency Medicine Undersea and Hyperbaric Medicine | DX: L97.812 Non-pressure chronic ulcer of other part of right lower leg with fat layer exposed (principal); E66.01 Morbid (severe) obesity due to excess calories; E78.5 Hyperlipidemia, unspecified; H26.9 Unspecified cataract; I89.0 Lymphedema, not elsewhere classified; I11.0 Hypertensive heart disease with heart failure; I50.9 Heart failure, unspecified; I25.10 Atherosclerotic heart disease of native coronary artery without angina pectoris; I25.2 Old myocardial infarction; I87.2 Venous insufficiency (chronic) (peripheral); G62.9 Polyneuropathy, unspecified; F41.9 Anxiety disorder, unspecified; Z68.42 Body mass index [BMI] 45.0-49.9, adult; Z87.891 Personal history of nicotine dependence ==

== ENCOUNTER → 2020-11-22 | Outpatient (CLI) | payer OTHER | LOC: M.WC 09:09 | PROVIDERS: ATTEND Emergency Medicine Undersea and Hyperbaric Medicine | DX: L97.812 Non-pressure chronic ulcer of other part of right lower leg with fat layer exposed (principal); E66.01 Morbid (severe) obesity due to excess calories; E78.5 Hyperlipidemia, unspecified; H26.9 Unspecified cataract; I89.0 Lymphedema, not elsewhere classified; I11.0 Hypertensive heart disease with heart failure; I50.9 Heart failure, unspecified; I25.10 Atherosclerotic heart disease of native coronary artery without angina pectoris; I25.2 Old myocardial infarction; I87.2 Venous insufficiency (chronic) (peripheral); G62.9 Polyneuropathy, unspecified; F41.9 Anxiety disorder, unspecified; Z68.42 Body mass index [BMI] 45.0-49.9, adult; Z87.891 Personal history of nicotine dependence ==

== ENCOUNTER → 2020-11-29 | Outpatient (CLI) | payer OTHER | LOC: M.WC 08:59 | PROVIDERS: ATTEND Emergency Medicine Undersea and Hyperbaric Medicine | DX: L97.812 Non-pressure chronic ulcer of other part of right lower leg with fat layer exposed (principal); E66.01 Morbid (severe) obesity due to excess calories; E78.5 Hyperlipidemia, unspecified; H26.9 Unspecified cataract; I89.0 Lymphedema, not elsewhere classified; I11.0 Hypertensive heart disease with heart failure; I50.9 Heart failure, unspecified; I25.10 Atherosclerotic heart disease of native coronary artery without angina pectoris; I25.2 Old myocardial infarction; I87.2 Venous insufficiency (chronic) (peripheral); G62.9 Polyneuropathy, unspecified; F41.9 Anxiety disorder, unspecified; Z68.42 Body mass index [BMI] 45.0-49.9, adult; Z87.891 Personal history of nicotine dependence ==

== ENCOUNTER → 2020-12-06 | Outpatient (CLI) | payer OTHER | LOC: M.WC 08:36 | PROVIDERS: ATTEND Emergency Medicine Undersea and Hyperbaric Medicine | DX: L97.812 Non-pressure chronic ulcer of other part of right lower leg with fat layer exposed (principal); I87.2 Venous insufficiency (chronic) (peripheral); I89.0 Lymphedema, not elsewhere classified; I25.10 Atherosclerotic heart disease of native coronary artery without angina pectoris; E78.5 Hyperlipidemia, unspecified; I25.2 Old myocardial infarction; I11.0 Hypertensive heart disease with heart failure; I50.9 Heart failure, unspecified; H26.9 Unspecified cataract; E66.01 Morbid (severe) obesity due to excess calories; G47.9 Sleep disorder, unspecified; G62.9 Polyneuropathy, unspecified; F41.9 Anxiety disorder, unspecified; Z68.42 Body mass index [BMI] 45.0-49.9, adult; Z87.891 Personal history of nicotine dependence; Z79.82 Long term (current) use of aspirin; Z79.899 Other long term (current) drug therapy ==

== ENCOUNTER → 2020-12-13 | Outpatient (CLI) | payer OTHER | LOC: M.WC 08:53 | PROVIDERS: ATTEND Emergency Medicine Undersea and Hyperbaric Medicine | DX: L97.812 Non-pressure chronic ulcer of other part of right lower leg with fat layer exposed (principal); I87.2 Venous insufficiency (chronic) (peripheral); I89.0 Lymphedema, not elsewhere classified; I25.10 Atherosclerotic heart disease of native coronary artery without angina pectoris; E78.5 Hyperlipidemia, unspecified; I25.2 Old myocardial infarction; I11.0 Hypertensive heart disease with heart failure; I50.9 Heart failure, unspecified; H26.9 Unspecified cataract; E66.01 Morbid (severe) obesity due to excess calories; G47.9 Sleep disorder, unspecified; G62.9 Polyneuropathy, unspecified; F41.9 Anxiety disorder, unspecified; Z68.42 Body mass index [BMI] 45.0-49.9, adult; Z87.891 Personal history of nicotine dependence; Z79.82 Long term (current) use of aspirin ==

== ENCOUNTER → 2020-12-27 | Outpatient (CLI) | payer OTHER | LOC: M.WC 08:58 | PROVIDERS: ATTEND Emergency Medicine Undersea and Hyperbaric Medicine | DX: L97.812 Non-pressure chronic ulcer of other part of right lower leg with fat layer exposed (principal); E66.01 Morbid (severe) obesity due to excess calories; E78.5 Hyperlipidemia, unspecified; I87.2 Venous insufficiency (chronic) (peripheral); I89.0 Lymphedema, not elsewhere classified; I25.10 Atherosclerotic heart disease of native coronary artery without angina pectoris; I25.2 Old myocardial infarction; I11.0 Hypertensive heart disease with heart failure; I50.9 Heart failure, unspecified; H26.9 Unspecified cataract; G47.9 Sleep disorder, unspecified; G62.9 Polyneuropathy, unspecified; F41.9 Anxiety disorder, unspecified; Z68.42 Body mass index [BMI] 45.0-49.9, adult; Z87.891 Personal history of nicotine dependence; Z79.82 Long term (current) use of aspirin ==

== ENCOUNTER → 2021-01-10 | Outpatient (CLI) | payer OTHER | LOC: M.WC 09:00 | PROVIDERS: ATTEND Emergency Medicine Undersea and Hyperbaric Medicine | DX: L97.812 Non-pressure chronic ulcer of other part of right lower leg with fat layer exposed (principal); E66.01 Morbid (severe) obesity due to excess calories; E78.5 Hyperlipidemia, unspecified; I87.2 Venous insufficiency (chronic) (peripheral); I89.0 Lymphedema, not elsewhere classified; I25.10 Atherosclerotic heart disease of native coronary artery without angina pectoris; I25.2 Old myocardial infarction; I11.0 Hypertensive heart disease with heart failure; I50.9 Heart failure, unspecified; H26.9 Unspecified cataract; G62.9 Polyneuropathy, unspecified; F41.9 Anxiety disorder, unspecified; Z68.42 Body mass index [BMI] 45.0-49.9, adult; Z87.891 Personal history of nicotine dependence ==

== ENCOUNTER → 2021-01-24 | Outpatient (CLI) | payer OTHER | LOC: M.WC 08:15 | PROVIDERS: ATTEND Emergency Medicine Undersea and Hyperbaric Medicine | DX: L97.812 Non-pressure chronic ulcer of other part of right lower leg with fat layer exposed (principal); E66.01 Morbid (severe) obesity due to excess calories; E78.5 Hyperlipidemia, unspecified; I87.2 Venous insufficiency (chronic) (peripheral); I89.0 Lymphedema, not elsewhere classified; I25.10 Atherosclerotic heart disease of native coronary artery without angina pectoris; I25.2 Old myocardial infarction; I11.0 Hypertensive heart disease with heart failure; I50.9 Heart failure, unspecified; H26.9 Unspecified cataract; G62.9 Polyneuropathy, unspecified; F41.9 Anxiety disorder, unspecified; Z68.42 Body mass index [BMI] 45.0-49.9, adult; Z87.891 Personal history of nicotine dependence ==

== ENCOUNTER → 2021-02-14 | Outpatient (CLI) | payer OTHER | LOC: M.WC 09:28 | PROVIDERS: ATTEND Emergency Medicine Undersea and Hyperbaric Medicine | DX: L97.812 Non-pressure chronic ulcer of other part of right lower leg with fat layer exposed (principal); E66.01 Morbid (severe) obesity due to excess calories; E78.5 Hyperlipidemia, unspecified; I87.2 Venous insufficiency (chronic) (peripheral); I89.0 Lymphedema, not elsewhere classified; I25.10 Atherosclerotic heart disease of native coronary artery without angina pectoris; I25.2 Old myocardial infarction; I11.0 Hypertensive heart disease with heart failure; I50.9 Heart failure, unspecified; H26.9 Unspecified cataract; G62.9 Polyneuropathy, unspecified; F41.9 Anxiety disorder, unspecified; Z68.42 Body mass index [BMI] 45.0-49.9, adult; Z87.891 Personal history of nicotine dependence ==

== ENCOUNTER → 2021-02-28 | Outpatient (CLI) | payer OTHER | LOC: M.WC 09:00 | PROVIDERS: ATTEND Emergency Medicine Undersea and Hyperbaric Medicine | DX: L97.812 Non-pressure chronic ulcer of other part of right lower leg with fat layer exposed (principal); L97.821 Non-pressure chronic ulcer of other part of left lower leg limited to breakdown of skin; E66.01 Morbid (severe) obesity due to excess calories; E78.5 Hyperlipidemia, unspecified; I87.2 Venous insufficiency (chronic) (peripheral); I89.0 Lymphedema, not elsewhere classified; I25.10 Atherosclerotic heart disease of native coronary artery without angina pectoris; I25.2 Old myocardial infarction; I11.0 Hypertensive heart disease with heart failure; I50.9 Heart failure, unspecified; H26.9 Unspecified cataract; G62.9 Polyneuropathy, unspecified; F41.9 Anxiety disorder, unspecified; Z68.42 Body mass index [BMI] 45.0-49.9, adult; Z87.891 Personal history of nicotine dependence ==

== ENCOUNTER → 2021-03-21 | Outpatient (CLI) | payer OTHER | LOC: M.WC 09:19 | PROVIDERS: ATTEND Emergency Medicine Undersea and Hyperbaric Medicine | DX: L97.812 Non-pressure chronic ulcer of other part of right lower leg with fat layer exposed (principal); L97.821 Non-pressure chronic ulcer of other part of left lower leg limited to breakdown of skin; E66.01 Morbid (severe) obesity due to excess calories; E78.5 Hyperlipidemia, unspecified; I87.2 Venous insufficiency (chronic) (peripheral); I89.0 Lymphedema, not elsewhere classified; I25.10 Atherosclerotic heart disease of native coronary artery without angina pectoris; I25.2 Old myocardial infarction; I11.0 Hypertensive heart disease with heart failure; I50.9 Heart failure, unspecified; H26.9 Unspecified cataract; G62.9 Polyneuropathy, unspecified; F41.9 Anxiety disorder, unspecified; Z68.42 Body mass index [BMI] 45.0-49.9, adult; Z87.891 Personal history of nicotine dependence ==

== ENCOUNTER → 2021-04-11 | Outpatient (CLI) | payer OTHER | LOC: M.WC 09:28 | PROVIDERS: ATTEND Emergency Medicine Undersea and Hyperbaric Medicine | DX: L97.812 Non-pressure chronic ulcer of other part of right lower leg with fat layer exposed (principal); L97.822 Non-pressure chronic ulcer of other part of left lower leg with fat layer exposed; I89.0 Lymphedema, not elsewhere classified; G62.9 Polyneuropathy, unspecified; I25.10 Atherosclerotic heart disease of native coronary artery without angina pectoris; E78.5 Hyperlipidemia, unspecified; I25.2 Old myocardial infarction; I11.0 Hypertensive heart disease with heart failure; I50.9 Heart failure, unspecified; H26.9 Unspecified cataract; E66.01 Morbid (severe) obesity due to excess calories; F41.9 Anxiety disorder, unspecified; Z68.42 Body mass index [BMI] 45.0-49.9, adult; Z87.891 Personal history of nicotine dependence; Z79.82 Long term (current) use of aspirin; Z79.899 Other long term (current) drug therapy ==

== ENCOUNTER → 2021-05-02 | Outpatient (CLI) | payer OTHER | LOC: M.WC 09:19 | PROVIDERS: ATTEND Emergency Medicine Undersea and Hyperbaric Medicine | DX: L97.812 Non-pressure chronic ulcer of other part of right lower leg with fat layer exposed (principal); L97.822 Non-pressure chronic ulcer of other part of left lower leg with fat layer exposed; I89.0 Lymphedema, not elsewhere classified; G62.9 Polyneuropathy, unspecified; I25.10 Atherosclerotic heart disease of native coronary artery without angina pectoris; E78.5 Hyperlipidemia, unspecified; I25.2 Old myocardial infarction; I11.0 Hypertensive heart disease with heart failure; I50.9 Heart failure, unspecified; H26.9 Unspecified cataract; E66.01 Morbid (severe) obesity due to excess calories; F41.9 Anxiety disorder, unspecified ==

== ENCOUNTER → 2021-05-23 | Outpatient (CLI) | payer OTHER | LOC: M.WC 08:35 | PROVIDERS: ATTEND Emergency Medicine Undersea and Hyperbaric Medicine | DX: L97.812 Non-pressure chronic ulcer of other part of right lower leg with fat layer exposed (principal); L97.822 Non-pressure chronic ulcer of other part of left lower leg with fat layer exposed; I89.0 Lymphedema, not elsewhere classified; I87.2 Venous insufficiency (chronic) (peripheral); I25.10 Atherosclerotic heart disease of native coronary artery without angina pectoris; E78.5 Hyperlipidemia, unspecified; I25.2 Old myocardial infarction; I11.0 Hypertensive heart disease with heart failure; I50.9 Heart failure, unspecified; H26.9 Unspecified cataract; G62.9 Polyneuropathy, unspecified; E66.01 Morbid (severe) obesity due to excess calories; F41.9 Anxiety disorder, unspecified; Z87.891 Personal history of nicotine dependence; Z79.82 Long term (current) use of aspirin; Z79.899 Other long term (current) drug therapy ==

== ENCOUNTER → 2021-06-13 | Outpatient (CLI) | payer OTHER | LOC: M.WC 09:30 | PROVIDERS: ATTEND Surgery | DX: L97.812 Non-pressure chronic ulcer of other part of right lower leg with fat layer exposed (principal); L97.822 Non-pressure chronic ulcer of other part of left lower leg with fat layer exposed; I89.0 Lymphedema, not elsewhere classified; E78.5 Hyperlipidemia, unspecified; E66.01 Morbid (severe) obesity due to excess calories; I87.2 Venous insufficiency (chronic) (peripheral); I25.10 Atherosclerotic heart disease of native coronary artery without angina pectoris; I25.2 Old myocardial infarction; I11.0 Hypertensive heart disease with heart failure; I50.9 Heart failure, unspecified; H26.9 Unspecified cataract; G62.9 Polyneuropathy, unspecified; F41.9 Anxiety disorder, unspecified; Z87.891 Personal history of nicotine dependence; Z79.82 Long term (current) use of aspirin ==

== ENCOUNTER → 2021-07-04 | Outpatient (CLI) | payer OTHER | LOC: M.WC 08:29 | PROVIDERS: ATTEND Surgery | DX: L97.812 Non-pressure chronic ulcer of other part of right lower leg with fat layer exposed (principal); L97.822 Non-pressure chronic ulcer of other part of left lower leg with fat layer exposed; I89.0 Lymphedema, not elsewhere classified; E66.01 Morbid (severe) obesity due to excess calories; E78.5 Hyperlipidemia, unspecified; I87.2 Venous insufficiency (chronic) (peripheral); I25.10 Atherosclerotic heart disease of native coronary artery without angina pectoris; I25.2 Old myocardial infarction; I11.0 Hypertensive heart disease with heart failure; I50.9 Heart failure, unspecified; H26.9 Unspecified cataract; G62.9 Polyneuropathy, unspecified; F41.9 Anxiety disorder, unspecified; Z87.891 Personal history of nicotine dependence; Z79.82 Long term (current) use of aspirin ==

== ENCOUNTER → 2021-07-25 | Outpatient (CLI) | payer OTHER | LOC: M.WC 09:30 | PROVIDERS: ATTEND Surgery | DX: L97.822 Non-pressure chronic ulcer of other part of left lower leg with fat layer exposed (principal); L97.812 Non-pressure chronic ulcer of other part of right lower leg with fat layer exposed; I87.2 Venous insufficiency (chronic) (peripheral); I89.0 Lymphedema, not elsewhere classified; I25.10 Atherosclerotic heart disease of native coronary artery without angina pectoris; E78.5 Hyperlipidemia, unspecified; I25.2 Old myocardial infarction; I11.0 Hypertensive heart disease with heart failure; I50.9 Heart failure, unspecified; H26.9 Unspecified cataract; G62.9 Polyneuropathy, unspecified; E66.01 Morbid (severe) obesity due to excess calories; Z87.891 Personal history of nicotine dependence; Z68.42 Body mass index [BMI] 45.0-49.9, adult; Z79.899 Other long term (current) drug therapy; Z79.82 Long term (current) use of aspirin ==